=== PATIENT | female | born 1965 | race Caucasian/White ===

== ENCOUNTER 2018-02-01 07:20 | Day surgery (SDC) | END 2018-02-01 17:58 | disposition home or self-care (01) ==

== ENCOUNTER 2018-04-29 12:03 | Observation (INO) | END 2018-05-01 18:35 | disposition home or self-care (01) ==

== ENCOUNTER → 2018-06-27 | Outpatient (CLI) | END | disposition home or self-care (01) ==

== ENCOUNTER 2018-09-02 11:37 | Inpatient (IN) | END 2018-09-04 16:29 | disposition home or self-care (01) | DRG 581 ==

== ENCOUNTER 2019-01-13 11:10 | Day surgery (SDC) | payer OTHER ==
[2019-01-13] VITALS (17 sets, daily range): BP systolic 132–163; BP diastolic 80–106; PULSE 74–100; RESP 11–20; Ht 170.2 cm; Wt 87.5 kg
[~2019-01-13] VITALS: Ht 170.2 cm; Wt 87.5 kg
[~2019-01-13 11:10] MED LIST: BENA10TA4 PO; HYDR25TA6 PO; NIRA100C PO; OXYC-438 PO
[2019-01-13] MEDS ORDERED: ACET1TAB40 ORAL (11:49)
[2019-01-13] MEDS ORDERED: BUPIVACAINE 0.5% (SDV) 30 ML INJ ONE (12:10)
--- NOTE | 2019-01-13 12:29 | PREAC ---
Date/Time of Note Date/Time of Note DATE: 01/13/19 TIME: 12:26 Anesthesia Eval and Record Evaluation Time Pre-Procedure Interview DATE: 01/13/19 TIME: 12:26 Age 53 Sex female NPO: 8 hrs Preoperative diagnosis Rt chest wall multiple masses Planned procedure Excision of multiple rt chest wall masses Past Medical History Past Medical History: Includes Cardio: HTN GI: Morbid obesity Surgery & Anesthesia Issues Hx of PONV, No known issue Meds Anticoagulation: No Beta Danelle within 24 hr: No Reason Beta Danelle not given: Pt. not on B-Danelle Reported Medications Acetaminophen with Codeine (Acetaminophen-Cod #3 Tablet) 1 Each Tablet, 1 TAB ORAL Q8H PRN for PAIN LEVEL 6-10 01/13/19 Niraparib Tosylate ([place]) 100 Mg Capsule, 100 MG PO HS, CAP 01/12/19 Hydrochlorothiazide* (Hydrochlorothiazide*) 25 Mg Tab, 25 MG PO DAILY, #30 TAB 09/02/18 Benazepril Hcl* (Benazepril Hcl*) 10 Mg Tablet, 10 MG PO DAILY, #30 TAB 04/29/18 Discontinued Scripts Oxycodone HCl/Acetaminophen (Oxycodone-Acetaminophen 5-325) 1 Each Tablet, 1 TAB PO Q4H PRN for PAIN LEVEL 1-5 for 10 Days, #30 TAB Prov:ENZO LAWRENCE 09/04/18 Current Medications Influenza Virus Vaccine Quadrival (Fluzone) 0.5 ml ONCE ONCE IM* ; Start 01/16/19 at 10:00; Stop 01/16/19 at 10:01 Meds reviewed: Yes Allergies Coded Allergies: ondansetron (Verified Allergy, Unknown, RASH, 01/13/19) hydromorphone (Verified Adverse Reaction, Severe, N/V, 01/13/19) Allergies Reviewed: Yes Labs/Studies Labs Reviewed: Reviewed by anesthesiologist test: Negative Pre-procedure Exam Last vitals Vital Signs Date Temp Pulse Resp B/P (MAP) Pulse Ox O2 O2 Flow FiO2 Time Delivery Rate 01/13/19 98.5 80 16 156/87 98 Room Air 11:49 (110) Airway: Adequate mouth opening, Adequate thyromental dist Mallampati: Mallampati III Teeth: Normal Lung: Normal Heart: Normal ASA Physical Status ASA physical status: 3 Emergency: None Planned Anesthetic General/MAC: LMA Planned Pain Management Parenteral pain med, Local by surgeon Pre-operative Attestations Prior to commencing anesthesia and surgery, the patient was re-evaluated, there was verification of: *The patient's identity *The results of appropriate recent lab work and preoperative vital signs *The above evaluation not changing prior to induction *Anesthetic plan, risk benefits, alternative and complications discussed with patient/family; questions answered; patient/family understands, accepts and wishes to proceed. DUANE COCHRAN MD Jan 13, 2019 12:29
[2019-01-13] MEDS ORDERED: MIDAZOLAM 1 MG/ML 2 ML INJ ONE (13:41)
[2019-01-13] MEDS ORDERED: FENTAnyl 50 MCG/ML VIAL ONE (13:41)
[2019-01-13] MEDS ORDERED: LIDOCAINE 2% (SDV) 5 ML INJ ONE (15:00)
[2019-01-13] MEDS ORDERED: PROPOFOL 20 ML ONE (15:00)
[2019-01-13] MEDS ORDERED: CEFAZOLIN 1 GM INJ ONE (15:01)
[2019-01-13] MEDS ORDERED: METOCLOPRAMIDE 10 MG INJ ONE (15:01)
[2019-01-13] MEDS ORDERED: ONDANSETRON 4 MG INJ ONE (15:01)
--- NOTE | 2019-01-13 15:04 | SIPON ---
Date/Time of Note Date/Time of Note DATE: 01/13/19 TIME: 15:03 Operative Report Preoperative Diagnosis Recurrent cancer right chest wall Postoperative Diagnosis Same Operation/Procedure Performed Resection of the large area of her recurrent breast cancer right chest wall with large portion of skin and portion of underlying chest wall musculature Surgeon see signature line assistant quality manager Dr Patel Second assist: SELENA BANG MD Anesthesia: general Estimated blood loss: 100 - 150 ml's Transfusion Required none Specimen Right chest wall tumor with overlying skin and portion of chest wall musculature Grafts/Implants none Complications none JENNY HOPKINS MD Jan 13, 2019 15:04
[2019-01-13] MEDS ORDERED: ACETAMINOPHEN 1000MG/100ML IV 100 ML IVPB PRN (15:30)
--- NOTE | 2019-01-13 15:35 | PAC ---
Date/Time of Note Date/Time of Note DATE: 01/13/19 TIME: 15:34 Post-Anesthesia Notes Post-Anesthesia Note Last documented vital signs Vital Signs Date Temp Pulse Resp B/P (MAP) Pulse Ox O2 O2 Flow FiO2 Time Delivery Rate 01/13/19 98.5 80 16 156/87 98 Room Air 11:49 (110) Activity: WNL Respiratory function: WNL Cardiovascular function: WNL Mental status: Baseline Pain reasonably controlled: Yes Hydration appropriate: Yes Nausea/Vomiting absent: Yes Comments BP:142/88, P:86, Spo2:100%, T:98,8 DUANE COCHRAN MD Jan 13, 2019 15:35
[2019-01-13] MEDS ORDERED: DIPHENHYDRAMINE 50 MG INJ IV PRN (16:00)
[2019-01-13] MEDS ORDERED: hydrALAzine 20 MG INJ IV PRN (16:00)
[2019-01-13] MEDS ORDERED: LABETALOL HCL 20MG INJ IV PRN (16:00)
[2019-01-13] MEDS ORDERED: METOCLOPRAMIDE 10 MG INJ IV PRN ×2 (16:00→16:30)
[2019-01-13] MEDS ORDERED: FENTAnyl 50 MCG/ML VIAL IV PRN (16:00)
[2019-01-13] MEDS ORDERED: KETOROLAC 30 MG INJ IV PRN (16:30)
[2019-01-13] MEDS: D5W-0.45 NACL + KCL 20 MEQ 1,000 ML IV SCH ×2 (17:24→23:04)
--- NOTE | 2019-01-13 17:33 | OPR ---
DATE OF OPERATION: 01/13/2019 PREOPERATIVE DIAGNOSIS: Recurrent breast cancer, right anterior thoracic and chest wall. POSTOPERATIVE DIAGNOSIS: Recurrent breast cancer, right anterior thoracic and chest wall. OPERATION PERFORMED: Resection of the large area of recurrent breast cancer, right chest wall invadi ng portions of the underlying muscle. Large local skin flap advancement closure. ANESTHESIA: General. ANESTHESIOLOGIST: Satish Pacheco MD. SURGEON: Rafa Cristina MD. ASSISTANTS: Dr. Patel and Dr. Watts. INDICATIONS FOR PROCEDURE: The patient is a very unfortunate 53-year-old female who I previously nazia ated for invasive cancer of the right breast. She had known metastatic disease that developed to rec urrent fungating tumor on the right chest wall, which had a foul smelling odor and significant draina ge. Based on this, she was counseled as to the benefit of palliative resection. She consented and w as scheduled for surgery. DESCRIPTION OF PROCEDURE: The patient was brought to the operating theater, placed under general end otracheal tube anesthesia. She was then put in the lateral position with the right side up. A large elliptical incision was demarcated over the significant area of tumor from the sternal border all th e way to the posterior thorax. The incision was then carried out with 15 blade scalpel and the under lying subcutaneous tissue was transected with cautery dissection down to the muscle then took place o n both the superior and inferior side and the skin and a portion of the underlying muscle were then r esected from medial to lateral using cautery. This large area of tumor, skin and muscle was then sen t for permanent pathologic analysis. Due to the large defect, it was necessary to create skin flaps. Wide skin flaps for a distance of at least 10 cm were created both superiorly and inferiorly. The wound was then irrigated. Residual bleeding was controlled with cautery. Two #10 flat Amish-Srivastava drains were then brought through the right mid axillary line. One was placed posteriorly and the se cond was placed anteriorly over the anterior thoracic wall. Both drains were secured in place with 2 -0 nylon sutures. The skin flaps were rotated together and held in place with towel clamps and skin was then reapproximated with multiple 0 Prolene sutures in vertical mattress fashion and additional s kin ava were then placed. The patient tolerated the procedure well. The estimated blood loss wa s approximately 150 mL. There were no complications and the patient was transported in stable condit ion to the recovery room where circumferential compression dressing was applied. Dictated By: RAFA RODRIGEZ/JUAN MIGUEL Conf#: [id number] DID#: [id number]
[2019-01-13] MEDS: HYDROCODONE/APAP (5/325) TAB PO PRN (19:23)
--- NOTE | 2019-01-14 00:28 | HP ---
DATE OF ADMISSION: 01/13/2019 CHIEF COMPLAINT AND HISTORY OF PRESENT ILLNESS: The patient is a 53-year-old female well known to me from previous admission. The patient at that time was admitted for right breast cancer and underwent right partial mastectomy and axillary dissection. The patient also underwent chemotherapy and was subsequently treated for local recurrence. The patient was seen by Dr. Cristina as an outpatient and was diagnosed with: Recurrent breast cancer with right anterior thoracic and chest wall involvement. She underwent surgery today . ROS : post op CP. no nausea , vomiting,headache , dizziness, abdominal pain. No sensory -motor symptoms. Rest of the ROS unremarkable PAST MEDICAL HISTORY: As stated above. PAST SURGICAL HISTORY: The patient is status post right arm surgery for traumatic soft tissue injury status post appendectomy, status post abdominal lipoma resection, status post , status post tubal ligation, status post left chest Port-A-Cath placement. FAMILY HISTORY: Noncontributory. SOCIAL HISTORY: No smoking, no alcohol. PHYSICAL EXAMINATION: GENERAL: Revealed the patient to be awake, alert, fairly oriented. VITAL SIGNS: Temperature 98.4, pulse 74, respirations 18, blood pressure 150/88, O2 saturation is 100% room air. HEENT: No eye discharge or redness. Conjunctivae and lids are normal. Nose and ears are normal. NECK: The patient is status post surgery. CHEST: Fairly clear. CARDIOVASCULAR: S1, S2, normal. No murmur. ABDOMEN: Soft, nondistended, nontender. Bowel sounds present. EXTREMITIES: No edema. NEUROLOGIC: The patient remains clinically stable. A/P: Breast cancer : s/p surgery If the patient continues to do well, she will be discharged home tomorrow. We will use SCD for DVT prophylaxis. For pain control, the patient will be started on Toradol and [place]. Will add zofran on prn basis Dictated By: DERRICK IRENE MD AB/NTS Conf#: [id number] DID#: [id number] CC: JENNY CRISTINA MD;*EndCC* MTDD
[2019-01-14] MEDS: HYDROCODONE/APAP (5/325) TAB PO PRN ×3 (02:31→20:18)
[2019-01-14] MEDS: D5W-0.45 NACL + KCL 20 MEQ 1,000 ML IV SCH ×3 (05:50→22:39)
--- NOTE | 2019-01-14 16:28 | PN ---
Date/Time of Note Date/Time of Note DATE: 01/14/19 TIME: 16:25 Assessment/Plan VTE Prophylaxis Risk score (from Nsg)>0 risk: 2 SCD applied (from Nsg): Yes Lines/Catheters IV Catheter Type (from Nrsg): Peripheral IV Assessment/Plan Assessment/Plan 1. Recurrent breast cancer with right anterior thoracic and chest wall involvement. - PER SX 2. Diabetes. - GLYCEMIC control 3. Hypertension. Result Diagram: 01/14/19 0603 01/14/19 0602 Results 24hrs Laboratory Tests Test 01/14/19 06:02 01/14/19 06:03 Sodium Level 138 Potassium Level 3.5 Chloride Level 103 Carbon Dioxide Level 28 Anion Gap 7 Blood Urea Nitrogen 10 Creatinine 0.66 Est Glomerular Filtrat Rate mL/min > 60 Glucose Level 136 Calcium Level 8.3 L White Blood Count 4.2 #L Red Blood Count 2.95 L Hemoglobin 7.5 #L Hematocrit 23.6 L Mean Corpuscular Volume 80.0 L Mean Corpuscular Hemoglobin 25.4 L Mean Corpuscular Hemoglobin Concent 31.8 L Red Cell Distribution Width 19.8 H Platelet Count 33 #L Mean Platelet Volume 9.0 # Immature Granulocytes % 0.200 Neutrophils % Segmented Neutrophils % (Manual) 56 Band Neutrophils % (Manual) 13 H Lymphocytes % Lymphocytes % (Manual) 23 Monocytes % Monocytes % (Manual) 4 Eosinophils % Basophils % Myelocytes % (Manual) 3 H Promyelocytes % (Manual) 1 H Nucleated Red Blood Cells % 0.0 Immature Granulocytes # 0.010 Neutrophils # Neutrophils # (Manual) 2.4 Band Neutrophils # 0.5 Lymphocytes (Manual) 0.9 Lymphocytes # Monocytes # Monocytes # (Manual) 0.1 L Eosinophils # Basophils # Myelocytes # 0.1 H Promyelocytes # 0.0 Nucleated Red Blood Cells # Pathologist Review (Hematology) Platelet Estimate SIG DECREASED Poikilocytosis 1+ Anisocytosis 3+ Microcytosis 3+ Macrocytosis 1+ Exam/Review of Systems Exam Vitals Vital Signs Date Temp Pulse Resp B/P (MAP) Pulse Ox O2 O2 Flow FiO2 Time Delivery Rate 01/13/19 98.4 100 20 132/80 98 20:00 (97) 01/13/19 Room Air 17:45 01/13/19 2.0 16:29 Intake and Output 3/101/13/19 01/14/19 1515:00 23:00 07:00 IntakeIntake Total 1080 ml 820 ml OutputOutput Total 0 ml 190 ml 40 ml BalanceBalance 0 ml 890 ml 780 ml Results Results 24hrs Laboratory Tests Test 01/14/19 06:02 01/14/19 06:03 Sodium Level 138 Potassium Level 3.5 Chloride Level 103 Carbon Dioxide Level 28 Anion Gap 7 Blood Urea Nitrogen 10 Creatinine 0.66 Est Glomerular Filtrat Rate mL/min > 60 Glucose Level 136 Calcium Level 8.3 L White Blood Count 4.2 #L Red Blood Count 2.95 L Hemoglobin 7.5 #L Hematocrit 23.6 L Mean Corpuscular Volume 80.0 L Mean Corpuscular Hemoglobin 25.4 L Mean Corpuscular Hemoglobin Concent 31.8 L Red Cell Distribution Width 19.8 H Platelet Count 33 #L Mean Platelet Volume 9.0 # Immature Granulocytes % 0.200 Neutrophils % Segmented Neutrophils % (Manual) 56 Band Neutrophils % (Manual) 13 H Lymphocytes % Lymphocytes % (Manual) 23 Monocytes % Monocytes % (Manual) 4 Eosinophils % Basophils % Myelocytes % (Manual) 3 H Promyelocytes % (Manual) 1 H Nucleated Red Blood Cells % 0.0 Immature Granulocytes # 0.010 Neutrophils # Neutrophils # (Manual) 2.4 Band Neutrophils # 0.5 Lymphocytes (Manual) 0.9 Lymphocytes # Monocytes # Monocytes # (Manual) 0.1 L Eosinophils # Basophils # Myelocytes # 0.1 H Promyelocytes # 0.0 Nucleated Red Blood Cells # Pathologist Review (Hematology) Platelet Estimate SIG DECREASED Poikilocytosis 1+ Anisocytosis 3+ Microcytosis 3+ Macrocytosis 1+ Medications Medication Current Medications Influenza Virus Vaccine Quadrival (Fluzone) 0.5 ml ONCE ONCE IM* ; Start 01/16/19 at 10:00; Stop 01/16/19 at 10:01 Potassium Chloride/Dextrose/ Sod Cl 1,000 ml @ 125 mls/hr Q8H IV Last administered on 01/14/19at 14:28; Admin Dose 125 MLS/HR; Start 01/13/19 at 15:04 Metoclopramide HCl (Reglan) 10 mg Q6H PRN IV NAUSEA; Start 01/13/19 at 16:30 Ketorolac Tromethamine (Toradol) 30 mg Q6H PRN IV PAIN LEVEL 1-3 Last administered on 01/14/19at 09:51; Admin Dose 30 MG; Start 01/13/19 at 16:30; Stop 01/16/19 at 16:29 Acetaminophen/ Hydrocodone Bitart ([place] (5/325)) 1 tab Q4H PRN PO MODERATE PAIN LEVEL 4-6 Last administered on 01/14/19at 14:36; Admin Dose 1 TAB; Start 01/13/19 at 16:30 JOSE PARSONS Jan 14, 2019 16:28
[2019-01-14] MEDS: BENAZEPRIL 10 MG TAB PO SCH (17:00)
[2019-01-14] MEDS: HYDROCHLOROTHIAZIDE 25 MG TAB PO SCH (17:00)
--- NOTE | 2019-01-14 18:43 | PN ---
DATE: 01/14/2019 Postop day #1 status post extensive resection of the chest wall metastasis of previously removed [address] cancer. SUBJECTIVE: Complains of pain and she is getting different medication for control of the pain. Also there has been some drainage of the blood from the site of the Amish-Srivastava tube. She has been out of bed, walking in the room, but she has been feeling a little bit dizzy. OBJECTIVE: VITAL SIGNS: Temperature 98.4, heart rate 74 and 100, respirations 20, blood pressure 132/80, satura tion 98%. LABORATORY DATA: Sodium, potassium, BUN and creatinine are within normal limits. Hematology: Hemog lobin is 7.5, hematocrit 23.6, platelet count is 33. I am not sure before this operation of what were the values of the hemoglobin and hematocrit, but the re are two Amish-Srivastava drains and that the drainage has been bloody since the operation yesterday, and since the operation and until 7:00 today morning they have drained 100 mL all together. The righ t upper extremity has lymphedema. The patient can move all the fingers and hand and raise the right upper extremity to about 90 degrees of abduction. PLAN: Considering the low value of the hemoglobin, hematocrit and platelet, also bloody drainage fro m the Amish-Nick, and some dizziness while walking, I prefer to keep the patient at least one mor e day today in the hospital. We will observe her. We will repeat CBC tomorrow and if this is stable , we are going to discharge her tomorrow. Dictated By: SHERI PARHAM/JUAN MIGUEL Conf#: [id number] DID#: [id number]
[2019-01-14 20:30] VITALS: BP 135/80; PULSE 90; RESP 20
[2019-01-15 01:00] VITALS: BP 115/68; PULSE 81; RESP 19
[2019-01-15] MEDS: HYDROCODONE/APAP (5/325) TAB PO PRN ×3 (03:52→14:14)
[2019-01-15 06:00] VITALS: BP 136/94; PULSE 86; RESP 18
[2019-01-15] MEDS: HYDROCHLOROTHIAZIDE 25 MG TAB PO SCH (06:08)
[2019-01-15] MEDS: D5W-0.45 NACL + KCL 20 MEQ 1,000 ML IV SCH ×2 (06:59→15:04)
[2019-01-15 08:34] VITALS: BP 159/84; PULSE 70; RESP 17
[2019-01-15] MEDS: BENAZEPRIL 10 MG TAB PO SCH (08:56)
[2019-01-15 12:00] VITALS: BP 142/83; PULSE 77; RESP 18
--- NOTE | 2019-01-15 13:41 | PN ---
DATE: 01/15/2019 Status post extensive resection of the right chest wall skin which has metastatic cancer of the breas t and deposits in it. SUBJECTIVE: Feels better slightly today, tolerating food and has been out of bed, walking around. C omplains also of right posterior upper chest wall pain which appears to be pain in the ribs or scapul a on the right side. She said that this pain has been going on for about 2 months. There is possibility of bone metastasis, so I will talk to Dr. Hopkins and maybe the patient needs to h ave a PET CT scan done as an outpatient when she goes to Dr. Hopkins' office for followup this coming w [place]. HEART: Regular. LUNGS: Clear. ABDOMEN: Soft. Two Amish-Srivastava drain in place. The drainage is serosanguineous today. We will k eep the drains in place. LABORATORY DATA: WBC is 3700 with 48% segmented, hemoglobin is 7.8, hematocrit 24.3, platelet is the same as yesterday. It is actually slightly better, it is 40,040 today. ASSESSMENT: The patient is status post resection of metastatic cancer of breast to the right chest w all. Extensive resection was performed on Wednesday. The patient is stable now. From surgical point o f view, the patient can be discharged home to follow with Dr. Hopkins in the office. Instructions give n to the patient in regard to the care of the Amish-Srivastava and how to drain it and how to record the drainage and when she goes to Dr. Hopkins' office to take the paper so that they know how much has bee n draining. The patient says she has Tylenol with codeine at home for pain. In any case, the medica l service will also see the patient and they will make a discharge planning if they agree with discha rge and they will give pain medication to the patient as well. Dictated By: SHERI FAIRBANKS MD PS/NTS Conf#: [id number] DID#: [id number] CC: JENNY HOPKINS MD;*EndCC*
--- NOTE | 2019-01-15 13:58 | PDOCDIS ---
Discharge Instructions CONDITION [id number] Patient Condition: Rylze2g Good HOME CARE INSTRUCTIONS: [id number] Diet Instructions: [id number] Regular ACTIVITY: [id number] Activity Restrictions: [id number] Slowly Increase Activity Avoid heavy lifting FOLLOW UP/APPOINTMENTS Follow-up Plan Dr. Cristina next week Oncologist as before PMD in 1-2 week DERRICK IRENE MD Jan 15, 2019 13:58
[2019-01-15] MEDS ORDERED: FER325 PO (14:00)
[2019-01-15 15:22] VITALS: BP 137/79; PULSE 91; RESP 18
== END 2019-01-15 16:50 | disposition home or self-care (01) ==
LOC: SDS 11:10 → REC 15:27 → UNDOADMIN 15:27 → 2NE 17:10 → REC 17:10 → SDS 01-15 16:50
PROVIDERS: ATTEND Surgery Surgical Oncology
DX: C50.911 Malignant neoplasm of unspecified site of right female breast (principal); I10 Essential (primary) hypertension
CPT/HCPCS: 19260; 80048; 84703; 85025; 88307; J0690; J1200; J1885; J2250; J2405; J2765; J3010; J3480; Z7512; Z7610

== ENCOUNTER 2019-01-26 16:49 | Inpatient (IN) | payer OTHER ==
[~2019-01-26] VITALS: Ht 152.4 cm; Wt 75.8 kg
[~2019-01-26 16:49] MED LIST changes: +ACET1TAB40 ORAL; +FER325 PO; -OXYC-438 PO
[2019-01-26 21:00] VITALS: Ht 152.4 cm; Wt 75.8 kg
[2019-01-27 00:20] VITALS: BP 138/75; PULSE 99; RESP 18
[2019-01-27] MEDS ORDERED: NACL 0.9% 3 ML SYG IV SCH (01:00)
[2019-01-27] MEDS ORDERED: ACETAMINOPHEN 325 MG TAB PO PRN (01:00)
[2019-01-27] MEDS ORDERED: ALBUTEROL/IPRATROPIUM (NEB) 3 ML AMP HHN PRN (01:00)
[2019-01-27] MEDS ORDERED: VANCOMYCIN IV PER PHARMACY XX SCH (01:00)
[2019-01-27] MEDS: CEFEPIME 1GM/50 ML (PMX) 50 ML IVPB SCH ×4 (01:41→22:36)
[2019-01-27] MEDS ORDERED: VANCOMYCIN HCL 1.5 GM in SOD CHLORIDE 0.9% 250 ML IVPB ONE (03:00)
[2019-01-27 03:08] VITALS: BP 98/114; PULSE 99; RESP 20
[2019-01-27] MEDS: morphine 2 MG INJ IV PRN ×2 (04:59→09:07)
[2019-01-27] MEDS ORDERED: POLYETHYLENE GLYCOL 17 GM PACKET PO ONE (05:00)
[2019-01-27 08:21] VITALS: BP 117/70; PULSE 97; RESP 17
[2019-01-27] MEDS: BENAZEPRIL 10 MG TAB PO SCH (08:59)
[2019-01-27] MEDS: FERROUS SULFATE (EC) 325 MG TAB PO SCH ×2 (08:59→21:06)
[2019-01-27 14:00] VITALS: BP 112/65; PULSE 102; RESP 17
[2019-01-27] MEDS ORDERED: VANCOMYCIN 1 GM 250 ML IVPB SCH (15:00)
--- NOTE | 2019-01-27 16:03 | HP ---
Date/Time of Note Date/Time of Note DATE: 01/27/19 TIME: 15:42 Assessment/Plan VTE Prophylaxis [place] [facility] [place]: 5 SCD applied (from Ns): Yes Pharmacological prophylaxis: NA/contraindicated Pharm contraindication: surgical contra Lines/Catheters IV C[facility]ter Type (from [facility] Peripheral IV Urinary Cath still in place: No Assessment/Plan Assessment/Plan -Right chest cellulitis, obtain wound culture, continue broad-spectrum antibiotics. Dr. Lafleur is asked to see patient in infection disease consultation. -Right chest stage IV cancer, post right radical mastectomy and chemotherapy. Dr. Cristina is asked to see patient in surgical consultation. -Anemia most likely secondary to chemotherapy and malignancy. Transfuse as needed. -Mild hypokalemia, will obtain BMP. Further recommendations based on clinical course. Plan of care discussed with Dr. Werner. Result Diagram: 01/27/19 1309 Results 24hrs Laboratory Tests Test 01/27/19 13:09 Blood Urea Nitrogen 12 Creatinine 0.63 HPI/ROS Admit Date/Time Admit Date/Time Jan 26, 2019 at 20:47 Hx of Present Illness The patient is unfortunate 53-year-old female with stage IV right breast cancer with lung metastasis, status post right radical mastectomy in August 2018 and chemotherapy. Patient developed recurrent fungating tumor of the right chest wall and underwent palliative resection of the large area of the recurrent breast cancer [address] Cristina. Patient follows with oncologist Dr. Vargas and as needed undergoing chemotherapy and immunotherapy however stated that last time she was unable to undergo chemotherapy due to low hemoglobin. Patient went to [facility] due to significant pain and drainage from surgical incision site. Patient was diagnosed with infection of surgical site patient was noted to have elevated white blood cells with left shift, hemoglobin 7.4 and mild hypokalemia. Patient was transferred to [facility] due to insurance reason and admitted to medical surgical floor. Patient denies any fever chills, denies any nausea and vomiting denies chest pain denies shortness of breath. Patient is complaining of significant incisional pain and generalized weakness. ROS Both point review of system is negative except for what mentioned in HPI PMH/Family/Social Past Medical History Medical History: hypertension Medications Current Medications IV Flush (NS 3 ml) 3 ml PER PROTOCOL IV ; Start 01/27/19 at 01:00 Acetaminophen (Tylenol Tab) 650 mg Q6H PRN PO .PAIN 1-3 OR TEMP; Start 01/27/19 at 01:00 Albuterol/ Ipratropium (Duoneb) 3 ml Q2H RESP THERAPY PRN HHN SHORTNESS OF B REATH; Start 01/27/19 at 01:00 Benazepril HCl (Lotensin) 10 mg DAILY PO Last administered on 01/27/19at 08:59; Admin Dose 10 MG; Start 01/27/19 at 09:00 Ferrous Sulfate (Ferrous Sulfate (Ec)) 325 mg BID PO Last administered on 01/27/19at 08:59; Admin Dose 325 MG; Start 01/27/19 at 09:00 Miscellaneous Information 100 mg HS PO ; Start 01/27/19 at 21:00; Status UNV Vancomycin HCl (Vanco Iv Per Pharmacy) VANCOMYCIN PER PHARMACY PER PROTOCOL XX ; Start 01/27/19 at 01:00 Cefepime HCl 50 ml @ 100 mls/hr Q12 IVPB Last administered on 01/27/19at 08:59; Admin Dose 100 MLS/HR; Start 01/27/19 at 01:00 Morphine Sulfate (morphine) 2 mg Q4H PRN IV SEVERE PAIN LEVEL 7-10 Last administered on 01/27/19at 09:07; Admin Dose 2 MG; Start 01/27/19 at 05:00 Vancomycin HCl 250 ml @ 125 mls/hr Q12H IVPB ; Start 01/27/19 at 16:00 Miscellaneous Information (*Rx Drug Level Order Reminder*) VANCO TR AT 1500 ONCE ONCE XX ; Start 01/28/19 at 15:00; Stop 01/28/19 at 15:01 Coded Allergies: ondansetron (Verified Allergy, Unknown, RASH, 01/13/19) hydromorphone (Verified Adverse Reaction, Severe, N/V, 01/13/19) Past Surgical History Past Surgical Hx: other ( S/p partial mastectomy of the right breast in January 2018, s/p right total mastectomy in August 2018, status post recurrent tumor resection January 13, 2018) Family History Significant Family History: cancer (Breast cancer in patient's grandmother and aunt) Social History Alcohol Use: none Smoking Status: Never smoker Drug Use: none Exam/Review of Systems Vital Signs Vitals Vital Signs Date Temp Pulse Resp B/P (MAP) Pulse Ox O2 O2 Flow FiO2 Time Delivery Rate 01/27/19 98.6 97 17 117/70 99 Room Air 08:21 (86) Intake and Output 01/26/19 01/26/19 01/27/19 1515:00 23:00 07:00 IntakeIntake Total 200 ml OutputOutput Total 250 ml BalanceBalance -50 ml Exam Constitutional: alert, oriented Head: normocephalic Neck: supple Respiratory: clear to auscultation Cardiovascular: nl pulses Gastrointestinal: soft, non-tender Musculoskeletal: nl extremities to inspection Extremities: normal pulses Neurological: nl mental status Skin: other (Right chest surgical incision with erythema and tenderness, right chest lateral wounds from prior NORMA with small amount of drainage.) ENIO ONEILL Jan 27, 2019 15:56
[2019-01-27] MEDS: VANCOMYCIN 1 GM 250 ML IVPB SCH (16:16)
[2019-01-27] MEDS: HYDROCODONE/APAP (5/325) TAB PO PRN ×2 (16:20→21:07)
[2019-01-27 20:41] VITALS: BP 125/66; PULSE 96; RESP 18
[2019-01-27] MEDS ORDERED: NIRAPARIB TOSYLATE 100 MG PO SCH (21:00)
[2019-01-27] MEDS: DOCUSATE SODIUM 100 MG CAP PO SCH (21:06)
[2019-01-27] MEDS ORDERED: COLLAGENASE 5 GM (UD JAR) TOP ONE (22:05)
[2019-01-28] VITALS (7 sets, daily range): BP systolic 100–141; BP diastolic 61–90; PULSE 55–101; RESP 18–19
[2019-01-28] MEDS: VANCOMYCIN 1 GM 250 ML IVPB SCH ×2 (04:45→17:37)
[2019-01-28] MEDS: HYDROCODONE/APAP (5/325) TAB PO PRN ×4 (05:15→21:09)
[2019-01-28] MEDS: METOCLOPRAMIDE 10 MG INJ IV PRN (05:16)
[2019-01-28] MEDS: HYDROCHLOROTHIAZIDE 25 MG TAB PO SCH (09:52)
[2019-01-28] MEDS: CEFEPIME 1GM/50 ML (PMX) 50 ML IVPB SCH (09:52)
[2019-01-28] MEDS: DOCUSATE SODIUM 100 MG CAP PO SCH ×2 (09:52→20:10)
[2019-01-28] MEDS: BENAZEPRIL 10 MG TAB PO SCH (09:52)
[2019-01-28] MEDS: FERROUS SULFATE (EC) 325 MG TAB PO SCH ×2 (09:55→20:10)
--- NOTE | 2019-01-28 13:25 | CONS ---
DATE OF ADMISSION: 06/27/2018 DATE OF CONSULTATION: 01/28/2019 DATE OF CONSULTATION: 01/28/2019. TYPE OF CONSULTATION: Surgical. REQUESTING PHYSICIAN: Medical service. REASON FOR CONSULTATION: Evaluation of the patient for the infection and cellulitis of the anterolat eral chest wall site of previous operation in which patient had for recurrent cancer of the right titus ast and was operated on 2 weeks ago. Consultation originally was requested from Dr. Cristina' service a nd I am seeing for Dr. Cristina. Thank you for consultation. HISTORY OF PRESENT ILLNESS: This is a 53-year-old female who in August 2018 had right modified radi penny mastectomy with axillary dissection for the invasive cancer of the right breast and also, she con tinued to have chemotherapy and immunotherapy as an outpatient. She presents to Dr. Cristina' office ab out 3 to 4 weeks ago with evidence of recurrent cancer of the right breast involving the large areas of right anterolateral chest wall. The patient was scheduled for operation and on 01/13/2019 underwe nt extensive resection of the large areas of skin and subcutaneous tissue involving even some part of the thoracic chest wall muscle for the recurrent cancer of the right breast, involving the skin. Po stop, the patient was doing relatively okay. On Wednesday01/27/2019, the 2 [employer] drains were removed in Dr. Cristina' office. At that time, there was minimal drainage. After that, the patient in past few days has been gradually feeling tired and some low grade fever and decreased appetite. So e ventually she goes to see Dr. Vargas who did the chemotherapies, and he found that the patient has ev idence of infection of the chest wall and has low hemoglobin and also small degree of fever, so she i s referred to emergency room. She goes to another emergency room and from there for the insurance re asons, the patient was referred back to [facility] emergency room. Over here, patient was s een in the emergency room and was found to have temperature 98.9, heart rate 99, respirations 18, blo od pressure 138/75, saturation 96% on room air. In the emergency room yesterday, the lab values are as follows: WBC 8500 with 79% segmented, which is a slight shift to the left, and hemoglobin was fou nd to be 6.4, which is very low, platelet count 278. Chemistry within normal limits. On physical ex am was found to have an area of cellulitis, mostly on the lateral part of the right upper chest wall at the site of incision. So with the impression of cellulitis, the patient was admitted, started on antibiotics, vancomycin and Maxipime IV. Now consultation was requested for us to see the patient an d surgical team. PAST MEDICAL HISTORY: Mainly is related to the cancer of the breasts which she has been struggling a nd fighting since last January when it was first diagnosed. Past medical history also is positive for hypertension. ALLERGIES: 1. DILAUDID. 2. ZOFRAN. PHYSICAL EXAMINATION GENERAL: Today, the patient is awake, alert, oriented x3, lying down in the bed, not in acute distre ss. VITAL SIGNS: Today temperature 98.1, heart rate 101, respirations 19, blood pressure 128/85, saturat ion 100% room air. Labs as was mentioned, hemoglobin is 6.4. Chemistry is normal. Head and neck wi thin normal limits. CHEST: Symmetrical expansion. The incision line appears to be healing properly, except that in the lateral aspect of the incision line mainly on the anterolateral and posterior extension of the incisi on line, there is evidence of cellulitis. I do not feel the accumulation of the fluid under that. HEART: Regular, tachycardia. LUNGS: Clear. ABDOMEN: Soft. EXTREMITIES: Legs no calf tenderness. No pitting edema. IMPRESSION: Here is a 53-year-old female status post recent operation for metastatic cancer of the r ight breast to the chest wall with extensive resection and skin flap mobilization. Post-operation, t he patient has developed more anemia and also cellulitis. For this reason, the patient has been admi tted, started on antibiotics. Also, per internal medicine ordered the patient is going to receive 3 units of packed cells considering that hemoglobin is 6.4. Patient has been started also on ferrous s ulfate and other medications. PLAN: From surgical point of view, we agree and recommend continue antibiotic treatment, manage anem ia as appropriate from medical cardiac point of view. The patient has stay sutures and ava in pl [place]. We are going to remove them on appropriate time gradually. We will continue to see the patient along with other colleagues. Dictated By: SHERI FAIRBANKS MD PS/NTS Conf#: [id number] [facility]#: [id number]
--- NOTE | 2019-01-28 14:40 | PN ---
Date/Time of Note Date/Time of Note DATE: 01/28/19 TIME: 14:37 Assessment/Plan VTE Prophylaxis [place] [facility] [place] risk: 8 [place]CD [place] [facility] No SCD contraindicated: other Pharmacological prophylaxis: other Pharm contraindication: other Lines/Catheters IV Catheter Type (from [facility] giovanna cath Urinary Cath still in place: No Assessment/Plan Assessment/Plan -Right chest cellulitis, obtain wound culture, continue broad-spectrum anti biotics. - per Dr. Lafleur in infection disease consultation. -Right chest stage IV cancer, post right radical mastectomy and chemotherapy. - Dr. Cristina in surgical consultation. -Anemia most likely secondary to chemotherapy and malignancy. - 3 PRBC; got 1 unit PRBC - am CBC -Mild hypokalemia- RESOLVED Further recommendations based on clinical course. Plan of care discussed with Dr. Werner. Result Diagram: 01/28/19 0446 01/28/19 0446 Results 24hrs Laboratory Tests Test 01/28/19 04:46 White Blood Count 8.5 # Red Blood Count 2.32 #L Hemoglobin 6.4 *L Hematocrit 20.5 L Mean Corpuscular Volume 88.4 Mean Corpuscular Hemoglobin 27.6 L Mean Corpuscular Hemoglobin Concent 31.2 L Red Cell Distribution Width 24.5 H Platelet Count 278 # Mean Platelet Volume 9.5 Immature Granulocytes % 0.500 H Neutrophils % Segmented Neutrophils % (Manual) 79 H Band Neutrophils % (Manual) 6 H Lymphocytes % Lymphocytes % (Manual) 9 L Monocytes % Monocytes % (Manual) 6 Eosinophils % Basophils % Nucleated Red Blood Cells % 0.0 Immature Granulocytes # 0.040 H Neutrophils # Neutrophils # (Manual) 6.8 Band Neutrophils # 0.5 Lymphocytes (Manual) 0.7 L Lymphocytes # Monocytes # Monocytes # (Manual) 0.5 Eosinophils # Basophils # Nucleated Red Blood Cells # Platelet Estimate NORMAL Polychromasia 3+ Poikilocytosis 1+ Anisocytosis 3+ Microcytosis 3+ Ovalocytes 1+ Sodium Level 136 Potassium Level 4.0 Chloride Level 103 Carbon Dioxide Level 26 Anion Gap 7 Blood Urea Nitrogen 11 Creatinine 0.57 Est Glomerular Filtrat Rate mL/min > 60 Glucose Level 113 Calcium Level 8.6 Phosphorus Level 4.0 Magnesium Level 2.3 Total Bilirubin 0.2 Direct Bilirubin 0.00 Indirect Bilirubin 0.2 Aspartate Amino Transf (AST/SGOT) 14 L Alanine Aminotransferase (ALT/SGPT) 14 Alkaline Phosphatase 82 Total Protein 6.5 Albumin 3.4 Globulin 3.10 Albumin/Globulin Ratio 1.09 Subjective 24 Hr Interval Summary Free Text/Dictation c.o pain- over right chest cellulitis. Eyes: no complaints ENT: no complaints Respiratory: no complaints Cardiovascular: no complaints, edema Genitourinary: no complaints Skin: erythema Neurologic: no complaints Endocrine: no complaints Lymphatic: no complaints Psychological: nl mood/affect Immunologic: no complaints Exam/Review of Systems Exam Vitals Vital Signs Date Temp Pulse Resp B/P (MAP) Pulse Ox O2 O2 Flow FiO2 Time Delivery Rate 01/28/19 98 12:00 01/28/19 98.1 19 128/85 100 08:30 (99) 01/27/19 Room Air 14:00 Intake and Output 01/27/19 01/27/19 01/28/19 1515:00 23:00 07:00 IntakeIntake Total 1100 ml 550 ml 490 ml BalanceBalance 1100 ml 550 ml 490 ml Constitutional: alert, well developed Psych: nl mood/affect Head: atraumatic Eyes: EOMI, nl lids, nl sclera ENMT: nl external ears & nose Neck: non-tender Respiratory: clear to auscultation Cardiovascular: nl pulses Gastrointestinal: soft, non-tender, other Musculoskeletal: nl extremities to inspection Extremities: normal pulses Neurological: nl mental status, nl speech, other Skin: other (see pics on chart) Results Results 24hrs Laboratory Tests Test 01/28/19 04:46 White Blood Count 8.5 # Red Blood Count 2.32 #L Hemoglobin 6.4 *L Hematocrit 20.5 L Mean Corpuscular Volume 88.4 Mean Corpuscular Hemoglobin 27.6 L Mean Corpuscular Hemoglobin Concent 31.2 L Red Cell Distribution Width 24.5 H Platelet Count 278 # Mean Platelet Volume 9.5 Immature Granulocytes % 0.500 H Neutrophils % Segmented Neutrophils % (Manual) 79 H Band Neutrophils % (Manual) 6 H Lymphocytes % Lymphocytes % (Manual) 9 L Monocytes % Monocytes % (Manual) 6 Eosinophils % Basophils % Nucleated Red Blood Cells % 0.0 Immature Granulocytes # 0.040 H Neutrophils # Neutrophils # (Manual) 6.8 Band Neutrophils # 0.5 Lymphocytes (Manual) 0.7 L Lymphocytes # Monocytes # Monocytes # (Manual) 0.5 Eosinophils # Basophils # Nucleated Red Blood Cells # Platelet Estimate NORMAL Polychromasia 3+ Poikilocytosis 1+ Anisocytosis 3+ Microcytosis 3+ Ovalocytes 1+ Sodium Level 136 Potassium Level 4.0 Chloride Level 103 Carbon Dioxide Level 26 Anion Gap 7 Blood Urea Nitrogen 11 Creatinine 0.57 Est Glomerular Filtrat Rate mL/min > 60 Glucose Level 113 Calcium Level 8.6 Phosphorus Level 4.0 Magnesium Level 2.3 Total Bilirubin 0.2 Direct Bilirubin 0.00 Indirect Bilirubin 0.2 Aspartate Amino Transf (AST/SGOT) 14 L Alanine Aminotransferase (ALT/SGPT) 14 Alkaline Phosphatase 82 Total Protein 6.5 Albumin 3.4 Globulin 3.10 Albumin/Globulin Ratio 1.09 Medications Medication Current Medications IV Flush (NS 3 ml) 3 ml PER PROTOCOL IV ; Start 01/27/19 at 01:00 Acetaminophen (Tylenol Tab) 650 mg Q6H PRN PO .PAIN 1-3 OR TEMP; Start 01/27/19 at 01:00 Albuterol/ Ipratropium (Duoneb) 3 ml Q2H RESP THERAPY PRN HHN SHORTNESS OF BREATH; Start 01/27/19 at 01:00 Benazepril HCl (Lotensin) 10 mg DAILY PO Last administered on 01/28/19at 09:52; Admin Dose 10 MG; Start 01/27/19 at 09:00 Ferrous Sulfate (Ferrous Sulfate (Ec)) 325 mg BID PO Last administered on 01/28/19at 09:55; Admin Dose 325 MG; Start 01/27/19 at 09:00 Miscellaneous Information 100 mg HS PO ; Start 01/27/19 at 21:00; Status UNV Vancomycin HCl (Vanco Iv Per Pharmacy) VANCOMYCIN PER PHARMACY PER PROTOCOL XX ; Start 01/27/19 at 01:00 Cefepime HCl 50 ml @ 100 mls/hr Q12 IVPB Last administered on 01/28/19at 09:52; Admin Dose 100 MLS/HR; Start 01/27/19 at 01:00 Morphine Sulfate (morphine) 2 mg Q4H PRN IV SEVERE PAIN LEVEL 7-10 Last administered on 01/27/19at 09:07; Admin Dose 2 MG; Start 01/27/19 at 05:00 Vancomycin HCl 250 ml @ 125 mls/hr Q12H IVPB Last administered on 01/28/19 04:45; Admin Dose 125 MLS/HR; Start 01/27/19 at 16:00 Miscellaneous Information (*Rx Drug Level Order Reminder*) VANCO TR AT 1500 ONCE ONCE XX ; Start 01/28/19 at 15:00; Stop 01/28/19 at 15:01 Docusate Sodium (Colace) 100 mg BID PO Last administered on 01/28/19 09:52; Admin Dose 100 MG; Start 01/27/19 at 21:00 Metoclopramide HCl (Reglan) 10 mg Q6H PRN IV NAUSEA AND/OR VOMITING Last administered on 01/28/19 05:16; Admin Dose 10 MG; Start 01/27/19 at 16:30 Hydrochlorothiazide (Hydrochlorothiazide) 25 mg DAILY PO Last administered on 01/28/19 09:52; Admin Dose 25 MG; Start 01/28/19 at 09:00 Acetaminophen/ Hydrocodone Bitart ([place] (5/325)) 1 tab Q4H PRN PO MODERATE PAIN LEVEL 4-6 Last administered on 01/27/19 16:20; Admin Dose 1 TAB; Start 01/27/19 at 16:30 Acetaminophen/ Hydrocodone Bitart ([place]ennox (5/325)) 2 tab Q4H PRN PO PAIN LEVEL 7-10 Last administered on 01/28/19 13:56; Admin Dose 2 TAB; Start 01/27/19 at 16:30 JOSE PARSONS Jan 28, 2019 14:40
[2019-01-28] MEDS: CEFAZOLIN 1 GM/50 ML (PMX) 50 ML IVPB SCH (21:05)
--- NOTE | 2019-01-28 22:51 | CONS ---
DATE OF ADMISSION: 01/26/2019 DATE OF CONSULTATION: REASON FOR CONSULTATION: Staphylococcus aureus postoperative wound infection and a right chest cellu litis. HISTORY OF PRESENT ILLNESS: The patient is a 53-year-old white female who was admitted on 01/26/2019 with a chief complaint of drainage and redness at the site of a recent operative wound on the lateral chest. The patient had a stage IV carcinoma of the breast and had a recent radical mastectom y and then excision of a fungating recurrence in the same area approximately 2 weeks ago. The patien t did well and had her drainage tubes removed but subsequently began having redness and tenderness an d drainage from the most anterior drainage tube site. She went to [facility] emergency room an d was transferred to [facility]. The patient was admitted to the hospital and begu n treatment with vancomycin and cefepime and had blood cultures drawn and her wound cultured Staphylo coccus aureus, culture of the nares was negative for MRSA. The patient has been afebrile. Her white blood cell count was 8500, her hemoglobin is 6.4 grams, which is the result of chemotherapy, which i s being delayed because of her low hemoglobin. PAST MEDICAL HISTORY: Remarkable and that she is overweight and has hypertension. PHYSICAL EXAMINATION GENERAL: Reveals a well-developed, well-nourished, obese, mesomorphic, fair skinned white female who is alert, oriented, cooperative and pleasant and is in no acute distress. HEENT: The pupils are equal, round and react to light. Mouth has moist mucous membranes. NECK: Supple. There is no jugular venous distention. CHEST: Clear to auscultation. There is a rather large stapled surgical incision from approximately 4 inches lateral from the sternum extending around into the lower part of the axilla. Below that lat erally are 2 sites where drains were removed. The most anterior and inferior one has a small amount of purulent drainage stained with a little bit of blood on a 4 x 4 size area of gauze. There is mild induration superior to this area site but no tenderness. There is no redness of the skin except lazaro und where the drain sites are minimally. ABDOMEN: Firm, soft, no palpable organs or masses. EXTREMITIES: Reveal no edema, cyanosis or clubbing. INITIAL IMPRESSION: 1. Abscess and cellulitis of right breast wound site. 2. Status post operative radical mastectomy and chemotherapy for right breast. 3. Anemia due to chemotherapy. 4. Obesity. 5. Hypertension. RECOMMENDATIONS: I would change the patient's treatment to more specifically cefazolin and rifampin for 14 days. The patient may be changed to oral cephalexin after the patient stabilizes to complete approximately 14 days treatment as well as 600 mg a day of rifampin. Thank you for referring this patient to Dr. Nina Lopez. Dictated By: Gomez PEÑA MD for NINA LOPEZ MD EC/NTS Conf#: [id number] DID#: [id number]
[2019-01-29] VITALS (8 sets, daily range): BP systolic 136–147; BP diastolic 80–95; PULSE 65–86; RESP 17–19
[2019-01-29] MEDS: HYDROCODONE/APAP (5/325) TAB PO PRN ×4 (03:58→22:38)
[2019-01-29] MEDS: CEFAZOLIN 1 GM/50 ML (PMX) 50 ML IVPB SCH ×3 (05:25→21:32)
[2019-01-29] MEDS: BENAZEPRIL 10 MG TAB PO SCH (08:12)
[2019-01-29] MEDS: DOCUSATE SODIUM 100 MG CAP PO SCH ×2 (08:12→20:57)
[2019-01-29] MEDS: FERROUS SULFATE (EC) 325 MG TAB PO SCH ×2 (08:12→20:57)
[2019-01-29] MEDS: RIFAMPIN 300 MG CAP PO SCH (08:12)
[2019-01-29] MEDS: HYDROCHLOROTHIAZIDE 25 MG TAB PO SCH (08:13)
--- NOTE | 2019-01-29 11:29 | CONS ---
Assessment/Plan Assessment/Plan Hospital Course (Demo Recall) ID PROGRESS NOTE CURRENT ABX: DAY # Ancef + Rifampin x 14 days s/p Vanco IV + Cefepime 01/29/19 0502 01/29/19 0502 24H INTERVAL SUMMARY * Clinically stable =A/A/O, coping as best as she can, determined to continue fight -- no fevers, VSS, reporting pain in right axillary nerve plexus * DC Planning -- home with PO ABX MICRO/OTHER * 01/25/19: (-)MRSA * 01/27/19 WOUND CULTURE Final Organism 1 STAPHYLOCOCCUS AUREUS QUANTITY 2+ S AUREUS M.I.C. RX --------- --- CEFAZOLIN S CIPROFLOXACIN <=0.5 S CLINDAMYCIN R DOXYCYCLINE S ERYTHROMYCIN >=8 R LEVOFLOXACIN 0.25 S OXACILLIN 0.5 S PENICILLIN-G >=0.5 R RIFAMPIN <=0.5 S VANCOMYCIN <=0.5 S TRIMETHOPRIM/SULFAMETHOXAZOLE <=10 S PHYSICAL EXAMINATION: GENERAL: VSS HEENT: AT, NC, anicteric NECK: Supple, Trach secure to Vent CHEST: Equal chest rise bilaterally, without dyspnea on observation Post r-mastectomy status with ava/stitches intact, resolving erythema at right chest wall under axillary incision site HEART: Pulse RRR ABDOMEN: Soft / NT EXTREMITIES: Warm, dry SKIN: No rash, no diaphoresis ID ASSESSMENT 53 yo F admit with: 1. Abscess and cellulitis of right breast wound site. 2. Status post operative radical mastectomy and chemotherapy for right breast cancer -> STG IV 3. Anemia due to chemotherapy. 4. Obesity. 5. Hypertension. (-)MRSA Nares ABX ALLERGIES: None to ABX INVASIVES: PIV, CURRENT ABX: DAY # Ancef + Rifampin x 14 days s/p Vanco IV + Cefepime ID RECOMMENDATIONS/PLAN: 1. Per ID Attending consult note: May DC on PO ABX: Ancef + Rifampin to complete 14 days total ABX Tx . Consultation Date/Type/Reason Admit Date/Time Jan 26, 2019 at 20:47 Initial Consult Date Date/Time of Note DATE: 01/29/19 TIME: 11:28 Exam/Review of Systems Exam Vitals Vital Signs Date Temp Pulse Resp B/P (MAP) Pulse Ox O2 O2 Flow FiO2 Time Delivery Rate 01/29/19 98.2 65 18 147/95 99 11:13 (112) 01/29/19 Room Air 03:45 Intake and Output 01/28/19 01/28/19 01/29/19 1515:00 23:00 07:00 IntakeIntake Total 1250 ml 750 ml BalanceBalance 1250 ml 750 ml Results Result Diagram: 01/29/19 0502 01/29/19 0502 Results 24hrs Laboratory Tests Test 01/29/19 05:02 White Blood Count 9.9 Red Blood Count 3.48 #L Hemoglobin 9.8 #L Hematocrit 30.3 #L Mean Corpuscular Volume 87.1 Mean Corpuscular Hemoglobin 28.2 L Mean Corpuscular Hemoglobin Concent 32.3 Red Cell Distribution Width 19.9 H Platelet Count 307 Mean Platelet Volume 9.9 Immature Granulocytes % 0.800 H Neutrophils % 75.1 Lymphocytes % 14.7 L Monocytes % 8.8 Eosinophils % 0.3 Basophils % 0.3 Nucleated Red Blood Cells % 0.0 Immature Granulocytes # 0.080 H Neutrophils # 7.5 Lymphocytes # 1.5 Monocytes # 0.9 Eosinophils # 0.0 Basophils # 0.0 Nucleated Red Blood Cells # 0.0 Sodium Level 136 Potassium Level 3.5 Chloride Level 101 Carbon Dioxide Level 25 Anion Gap 10 Blood Urea Nitrogen 11 Creatinine 0.56 Est Glomerular Filtrat Rate mL/min > 60 Glucose Level 121 Calcium Level 8.6 Medications Medication Current Medications IV Flush (NS 3 ml) 3 ml PER PROTOCOL IV ; Start 01/27/19 at 01:00 Acetaminophen (Tylenol Tab) 650 mg Q6H PRN PO .PAIN 1-3 OR TEMP; Start 01/27/19 at 01:00 Albuterol/ Ipratropium (Duoneb) 3 ml Q2H RESP THERAPY PRN HHN SHORTNESS OF BREATH; Start 01/27/19 at 01:00 Benazepril HCl (Lotensin) 10 mg DAILY PO Last administered on 01/29/19at 08:12; Admin Dose 10 MG; Start 01/27/19 at 09:00 Ferrous Sulfate (Ferrous Sulfate (Ec)) 325 mg BID PO Last administered on 01/29/19at 08:12; Admin Dose 325 MG; Start 01/27/19 at 09:00 Miscellaneous Information 100 mg HS PO ; Start 01/27/19 at 21:00; Status UNV Morphine Sulfate (morphine) 2 mg Q4H PRN IV SEVERE PAIN LEVEL 7-10 Last administered on 01/27/19 09:07; Admin Dose 2 MG; Start 01/27/19 at 05:00 Docusate Sodium (Colace) 100 mg BID PO Last administered on 01/29/19 08:12; Admin Dose 100 MG; Start 01/27/19 at 21:00 Metoclopramide HCl (Reglan) 10 mg Q6H PRN IV NAUSEA AND/OR VOMITING Last administered on 01/28/19 05:16; Admin Dose 10 MG; Start 01/27/19 at 16:30 Hydrochlorothiazide (Hydrochlorothiazide) 25 mg DAILY PO Last administered on 01/29/19 08:13; Admin Dose 25 MG; Start 01/28/19 at 09:00 Acetaminophen/ Hydrocodone Bitart ([place] (5/325)) 1 tab Q4H PRN PO MODERATE PAIN LEVEL 4-6 Last administered on 01/28/19 21:09; Admin Dose 1 TAB; Start 01/27/19 at 16:30 Acetaminophen/ Hydrocodone Bitart ([place] (5/325)) 2 tab Q4H PRN PO PAIN LEVEL 7-10 Last administered on 01/29/19 10:54; Admin Dose 2 TAB; Start 01/27/19 at 16:30 Rifampin (Rifampin) 600 mg DAILY PO Last administered on 01/29/19at 08:12; Admin Dose 600 MG; Start 01/29/19 at 09:00; Stop 02/12/19 at 10:00 Cefazolin Sodium 50 ml @ 100 mls/hr Q8 IVPB Last administered on 01/29/19 05:25; Admin Dose 100 MLS/HR; Start 01/28/19 at 22:00; Stop 02/12/19 at 22:00 MEDINA HAINES NP Jan 29, 2019 11:29
--- NOTE | 2019-01-29 14:36 | PN ---
DATE: 01/29/2019 SUBJECTIVE: Feels just slightly better, still has relatively too much pain in the anterolateral part of the chest wall. OBJECTIVE: Awake, alert, oriented x3. VITAL SIGNS: Temperature 98.2, heart rate 65, respiration 18, blood pressure 147/95, saturation 99% on room air. LABORATORY DATA: Today, WBC 9900 with 75% segmented. Hemoglobin after 3 units of blood transfusion has increased to 9.8, hematocrit 30, platelet is 3.7. Chemistry: Sodium, potassium, BUN, creatinine within normal limits. Microbiology: MRSA screening was negative. The Gram stain and final wound c ulture has grown Staph aureus, 1+. Sensitivity has been determined to multiple antibiotics including cefazolin and rifampin. PHYSICAL EXAMINATION: HEART: Regular. LUNGS: Clear. Chest wall, the area of cellulitis, induration over the incision line at the anterola teral area of the incision is almost the same as yesterday when I saw the patient, may be slightly be tter. ASSESSMENT/PLAN: This is a 53-year-old female who had modified radical mastectomy with axillary diss ection in August last year for cancer of the right breast, and later on she had chemotherapy and on the first day of 01/2019 she presented with the locally metastasis of the cancer to the large area of the skin of the chest wall on the right side, wide excision of the skin and subcutaneous tissue and in some areas, some part of the muscle of the chest wall was excised, flaps were mobilized. Then anton sure was performed. The patient apparently was doing relatively fine up to 6 days ago when the drain s were removed and after that, patient started having pain and some redness and some feeling of fever . So eventually was transferred from another hospital to the emergency room here was found to have c ellulitis and infection of the incision line. Culture was sent which has grown Staphylococcus aureus with sensitivity has been determined in the specimen culture. Dr. Billy, the Infectious Disease w is covering Dr. Lafleur has seen the patient. He suggested antibiotic to be changed to cefazolin a nd rifampin and that has been done as of last night. It should be mentioned that the patient's hemog lobin was 6.4. The patient received 3 units of blood and today the hemoglobin after 2 units of blood , has increased to 9.9, hematocrit 30.3. Differential WBC which was 79% segmented and 6% bands on ad mission, today is only 75% segmented. The bands has been cleared. PLAN: Continue antibiotic IV for the time being. Dictated By: SHERI FAIRBANKS MD PS/NTS Conf#: [id number] DID#: [id number]
--- NOTE | 2019-01-29 15:34 | PN ---
Date/Time of Note Date/Time of Note DATE: 01/29/19 TIME: 15:33 Assessment/Plan VTE Prophylaxis Risk score (from [facility])>0 risk: 4 SCD applied (from [facility]): Yes SCD contraindicated: other Pharmacological prophylaxis: other Pharm contraindication: other Lines/Catheters [facility]ter Type (from [facility] port-a-cath Central line still needed: Yes Urinary Cath still in place: No Assessment/Plan Assessment/Plan -Right chest cellulitis, obtain wound culture, continue broad-spectrum antibiotics. - per Dr. Lafleur in infection disease consultation. -Right chest stage IV cancer, post right radical mastectomy and chemotherapy. - Dr. Cristina in surgical consultation. -Anemia most likely secondary to chemotherapy and malignancy. - 3 PRBC; got 1 unit PRBC - am CBC -Mild hypokalemia- RESOLVED Further recommendations based on clinical course. Plan of care discussed with Dr. Werner. Result Diagram: 01/29/19 0502 01/29/19 0502 Results 24hrs Laboratory Tests Test 01/29/19 05:02 White Blood Count 9.9 Red Blood Count 3.48 #L Hemoglobin 9.8 #L Hematocrit 30.3 #L Mean Corpuscular Volume 87.1 Mean Corpuscular Hemoglobin 28.2 L Mean Corpuscular Hemoglobin Concent 32.3 Red Cell Distribution Width 19.9 H Platelet Count 307 Mean Platelet Volume 9.9 Immature Granulocytes % 0.800 H Neutrophils % 75.1 Lymphocytes % 14.7 L Monocytes % 8.8 Eosinophils % 0.3 Basophils % 0.3 Nucleated Red Blood Cells % 0.0 Immature Granulocytes # 0.080 H Neutrophils # 7.5 Lymphocytes # 1.5 Monocytes # 0.9 Eosinophils # 0.0 Basophils # 0.0 Nucleated Red Blood Cells # 0.0 Sodium Level 136 Potassium Level 3.5 Chloride Level 101 Carbon Dioxide Level 25 Anion Gap 10 Blood Urea Nitrogen 11 Creatinine 0.56 Est Glomerular Filtrat Rate mL/min > 60 Glucose Level 121 Calcium Level 8.6 Exam/Review of Systems Exam Vitals Vital Signs Date Temp Pulse Resp B/P (MAP) Pulse Ox O2 O2 Flow FiO2 Time Delivery Rate 01/29/19 86 12:02 01/29/19 98.2 18 147/95 99 11:13 (112) 01/29/19 Room Air 03:45 Intake and Output 01/28/19 01/28/19 01/29/19 1414:59 22:59 06:59 IntakeIntake Total 1250 ml 750 ml BalanceBalance 1250 ml 750 ml Constitutional: alert, oriented, well developed Psych: nl mood/affect Head: atraumatic Eyes: EOMI, nl lids, nl sclera ENMT: nl external ears & nose Neck: non-tender Respiratory: clear to auscultation Cardiovascular: nl pulses Gastrointestinal: soft, non-tender Musculoskeletal: nl extremities to inspection Extremities: normal pulses Neurological: nl speech Skin: other Lymph: nontender Results Results 24hrs Laboratory Tests Test 01/29/19 05:02 White Blood Count 9.9 Red Blood Count 3.48 #L Hemoglobin 9.8 #L Hematocrit 30.3 #L Mean Corpuscular Volume 87.1 Mean Corpuscular Hemoglobin 28.2 L Mean Corpuscular Hemoglobin Concent 32.3 Red Cell Distribution Width 19.9 H Platelet Count 307 Mean Platelet Volume 9.9 Immature Granulocytes % 0.800 H Neutrophils % 75.1 Lymphocytes % 14.7 L Monocytes % 8.8 Eosinophils % 0.3 Basophils % 0.3 Nucleated Red Blood Cells % 0.0 Immature Granulocytes # 0.080 H Neutrophils # 7.5 Lymphocytes # 1.5 Monocytes # 0.9 Eosinophils # 0.0 Basophils # 0.0 Nucleated Red Blood Cells # 0.0 Sodium Level 136 Potassium Level 3.5 Chloride Level 101 Carbon Dioxide Level 25 Anion Gap 10 Blood Urea Nitrogen 11 Creatinine 0.56 Est Glomerular Filtrat Rate mL/min > 60 Glucose Level 121 Calcium Level 8.6 Medications Medication Current Medications IV Flush (NS 3 ml) 3 ml PER PROTOCOL IV ; Start 01/27/19 at 01:00 Acetaminophen (Tylenol Tab) 650 mg Q6H PRN PO .PAIN 1-3 OR TEMP; Start 01/27/19 at 01:00 Albuterol/ Ipratropium (Duoneb) 3 ml Q2H RESP THERAPY PRN HHN SHORTNESS OF BREATH; Start 01/27/19 at 01:00 Benazepril HCl (Lotensin) 10 mg DAILY PO Last administered on 01/29/19at 08:12; Admin Dose 10 MG; Start 01/27/19 at 09:00 Ferrous Sulfate (Ferrous Sulfate (Ec)) 325 mg BID PO Last administered on 3/17/19at 08:12; Admin Dose 325 MG; Start 01/27/19 at 09:00 Miscellaneous Information 100 mg HS PO ; Start 01/27/19 at 21:00; Status UNV Morphine Sulfate (morphine) 2 mg Q4H PRN IV SEVERE PAIN LEVEL 7-10 Last administered on 01/27/19 09:07; Admin Dose 2 MG; Start 01/27/19 at 05:00 Docusate Sodium (Colace) 100 mg BID PO Last administered on 01/29/19 08:12; Admin Dose 100 MG; Start 01/27/19 at 21:00 Metoclopramide HCl (Reglan) 10 mg Q6H PRN IV NAUSEA AND/OR VOMITING Last administered on 01/28/19 05:16; Admin Dose 10 MG; Start 01/27/19 at 16:30 Hydrochlorothiazide (Hydrochlorothiazide) 25 mg DAILY PO Last administered on 01/29/19 08:13; Admin Dose 25 MG; Start 01/28/19 at 09:00 Acetaminophen/ Hydrocodone Bitart ([place] (5/325)) 1 tab Q4H PRN PO MODERATE PAIN LEVEL 4-6 Last administered on 01/28/19 21:09; Admin Dose 1 TAB; Start 01/27/19 at 16:30 Acetaminophen/ Hydrocodone Bitart ([place] (5/325)) 2 tab Q4H PRN PO PAIN LEVEL 7-10 Last administered on 01/29/19 10:54; Admin Dose 2 TAB; Start 01/27/19 at 16:30 Rifampin (Rifampin) 600 mg DAILY PO Last administered on 01/29/19 08:12; Admin Dose 600 MG; Start 01/29/19 at 09:00; Stop 02/12/19 at 10:00 Cefazolin Sodium 50 ml @ 100 mls/hr Q8 IVPB Last administered on 01/29/19 13:39; Admin Dose 100 MLS/HR; Start 01/28/19 at 22:00; Stop 02/12/19 at 22:00 JOSE PARSONS Jan 29, 2019 15:34
[2019-01-29] MEDS: METOCLOPRAMIDE 10 MG INJ IV PRN (19:43)
[2019-01-29] MEDS: COLLAGENASE 5 GM (UD JAR) TOP SCH (23:30)
[2019-01-30 02:13] VITALS: BP 149/90; PULSE 75; RESP 19
[2019-01-30] MEDS: HYDROCODONE/APAP (5/325) TAB PO PRN ×4 (04:51→20:04)
[2019-01-30] MEDS: CEFAZOLIN 1 GM/50 ML (PMX) 50 ML IVPB SCH ×3 (05:59→22:10)
[2019-01-30 08:25] VITALS: BP 149/90; PULSE 97; RESP 17
[2019-01-30] MEDS: HYDROCHLOROTHIAZIDE 25 MG TAB PO SCH (08:32)
[2019-01-30] MEDS: BENAZEPRIL 10 MG TAB PO SCH (08:32)
[2019-01-30] MEDS: FERROUS SULFATE (EC) 325 MG TAB PO SCH ×2 (08:32→21:03)
[2019-01-30] MEDS: DOCUSATE SODIUM 100 MG CAP PO SCH ×2 (08:32→21:03)
[2019-01-30] MEDS: COLLAGENASE 5 GM (UD JAR) TOP SCH ×2 (08:33→21:03)
[2019-01-30] MEDS: RIFAMPIN 300 MG CAP PO SCH (08:33)
--- NOTE | 2019-01-30 13:23 | CONS ---
Assessment/Plan Assessment/Plan Hospital Course (Demo Recall) Patient is alert wants to go home no fevers overnight. No labs Wound culture grew staph aureus Antimicrobials: Ancef and rifampin Physical examination: Well-developed well-nourished middle-aged woman who is alert in no distress. Head atraumatic normocephalic. Neck is supple. Chest rise symmetrical breath sounds clear. Patient has right-sided incision with ava clean dry and intact there is a wound with some drainage below it erythema is getting better. Heart: S1-S2. Abdomen soft bowel sounds present. Extremities without cyanosis. Assessment: 1. Right breast wound site abscess and cellulitis, resolving 2. Status post operative radical mastectomy and chemotherapy for right breast 3. Hypertension 4. Breast cancer Plan: Patient remains stable and overall doing better, continue present care and IV antibiotics for now, follow surgical recommendations Consultation Date/Type/Reason Admit Date/Time Jan 26, 2019 at 20:47 Initial Consult Date Type of Consult id Date/Time of Note DATE: 01/30/19 TIME: 13:22 Exam/Review of Systems Exam Vitals Vital Signs Date Temp Pulse Resp B/P (MAP) Pulse Ox O2 O2 Flow FiO2 Time Delivery Rate 01/30/19 98.9 97 17 149/90 96 Room Air 08:25 (109) Intake and Output 01/29/19 01/29/19 01/30/19 1515:00 23:00 07:00 IntakeIntake Total 50 ml 50 ml 50 ml BalanceBalance 50 ml 50 ml 50 ml Results Result Diagram: 01/29/19 0502 01/29/19 0502 Results 24hrs Laboratory Tests Test 01/30/19 07:36 Lab Scanned Report BLOOD TRANSFUSION Medications Medication Current Medications IV Flush (NS 3 ml) 3 ml PER PROTOCOL IV ; Start 01/27/19 at 01:00 Acetaminophen (Tylenol Tab) 650 mg Q6H PRN PO .PAIN 1-3 OR TEMP; Start 01/27/19 at 01:00 Albuterol/ Ipratropium (Duoneb) 3 ml Q2H RESP THERAPY PRN HHN SHORTNESS OF BREATH; Start 01/27/19 at 01:00 Benazepril HCl (Lotensin) 10 mg DAILY PO Last administered on 01/30/19at 08:32; Admin Dose 10 MG; Start 01/27/19 at 09:00 Ferrous Sulfate (Ferrous Sulfate (Ec)) 325 mg BID PO Last administered on 01/30/19 08:32; Admin Dose 325 MG; Start 01/27/19 at 09:00 Miscellaneous Information 100 mg HS PO ; Start 01/27/19 at 21:00; Status UNV Morphine Sulfate (morphine) 2 mg Q4H PRN IV SEVERE PAIN LEVEL 7-10 Last administered on 01/27/19 09:07; Admin Dose 2 MG; Start 01/27/19 at 05:00 Docusate Sodium (Colace) 100 mg BID PO Last administered on 01/30/19 08:32; Admin Dose 100 MG; Start 01/27/19 at 21:00 Metoclopramide HCl (Reglan) 10 mg Q6H PRN IV NAUSEA AND/OR VOMITING Last administered on 01/29/19 19:43; Admin Dose 10 MG; Start 01/27/19 at 16:30 Hydrochlorothiazide (Hydrochlorothiazide) 25 mg DAILY PO Last administered on 01/30/19 08:32; Admin Dose 25 MG; Start 01/28/19 at 09:00 Acetaminophen/ Hydrocodone Bitart ([facility] (5/325)) 1 tab Q4H PRN PO MODERATE PAIN LEVEL 4-6 Last administered on 01/28/19 21:09; Admin Dose 1 TAB; Start 01/27/19 at 16:30 Acetaminophen/ Hydrocodone Bitart ([facility] (5/325)) 2 tab Q4H PRN PO PAIN LEVEL 7-10 Last administered on 01/30/19 09:04; Admin Dose 2 TAB; Start 01/27/19 at 16:30 Rifampin (Rifampin) 600 mg DAILY PO Last administered on 01/30/19 08:33; Admin Dose 600 MG; Start 01/29/19 at 09:00; Stop 02/12/19 at 10:00 Cefazolin Sodium 50 ml @ 100 mls/hr Q8 IVPB Last administered on 01/30/19 05:59; Admin Dose 100 MLS/HR; Start 01/28/19 at 22:00; Stop 02/12/19 at 22:00 Collagenase (Santyl) 1 applic BID TOP Last administered on 01/30/19 08:33; Admin Dose 1 APPLIC; Start 01/29/19 at 22:00 DIMA FAY NP Jan 30, 2019 13:23
[2019-01-30 14:02] VITALS: BP 179/93; RESP 17
[2019-01-30] MEDS ORDERED: HYDR-3601 PO (14:23)
[2019-01-30] MEDS ORDERED: SAN30GM TOP (14:23)
[2019-01-30] MEDS ORDERED: RIF120L PO (14:23)
[2019-01-30] MEDS ORDERED: CEPH250S33 PO (14:23)
--- NOTE | 2019-01-30 16:55 | PN ---
DATE: 01/30/2019 SUBJECTIVE: Complains of pain mainly in the right lateral and posterior chest wall area. No nausea. No vomiting. Tolerating diet. OBJECTIVE: GENERAL: Awake, alert, oriented. VITAL SIGNS: Temperature maximum today 98.9, heart rate 75 and also 97, respirations 17, blood press ure 149/90, saturation 96% on room air. HEART: Regular. LUNGS: Clear. CHEST WALL: There is slight decrease in the cellulitis, maybe 30%, but the induration still persists around the lateral aspect of the incision line. It is not tender. Actually, it is numb. LABORATORY DATA: There is no lab done today. ASSESSMENT: The patient is a 53-year-old with metastatic cancer of the breast to the chest wall, who underwent extensive resection of the skin and subcutaneous tissue of the chest wall on the right rod e about 2-1/2 weeks ago. Four days ago, patient presented with pain and cellulitis and immediately s tarted on antibiotics, gradually getting better but she continues to complain of pain, and the pain i s so much that she required [place] 5/325 two tablets every 4 to 6 hours p.r.n. for pain. The Infectio us Disease note appreciated. PLAN: I think we should continue giving the patient IV antibiotics for a couple of more days at [facility], and when the wound looks much better, we may discharge the patient to continue antibiotic by mouth for total 2 weeks' duration. Dictated By: SHERI PARHAM/NTS Conf#: [id number] DID#: [id number]
[2019-01-30 20:00] VITALS: BP 156/87; PULSE 85; RESP 18
[2019-01-30] MEDS: morphine 2 MG INJ IV PRN (21:12)
[2019-01-31] MEDS: HYDROCODONE/APAP (5/325) TAB PO PRN ×5 (00:27→20:12)
[2019-01-31 02:00] VITALS: BP 129/81; PULSE 69; RESP 17
[2019-01-31] MEDS: CEFAZOLIN 1 GM/50 ML (PMX) 50 ML IVPB SCH ×3 (05:34→22:04)
[2019-01-31 08:26] VITALS: BP 137/92; PULSE 70; RESP 16
[2019-01-31] MEDS: RIFAMPIN 300 MG CAP PO SCH (09:19)
[2019-01-31] MEDS: COLLAGENASE 5 GM (UD JAR) TOP SCH ×2 (09:20→20:58)
[2019-01-31] MEDS: DOCUSATE SODIUM 100 MG CAP PO SCH ×2 (09:20→20:58)
[2019-01-31] MEDS: FERROUS SULFATE (EC) 325 MG TAB PO SCH ×2 (09:20→20:58)
[2019-01-31] MEDS: HYDROCHLOROTHIAZIDE 25 MG TAB PO SCH (09:20)
[2019-01-31] MEDS: BENAZEPRIL 10 MG TAB PO SCH (09:20)
[2019-01-31 14:30] VITALS: BP 133/88; PULSE 72; RESP 16
--- NOTE | 2019-01-31 15:08 | CONS ---
Assessment/Plan Assessment/Plan Hospital Course (Demo Recall) Looks comfortable, no fevers Wound culture grew staph aureus Antimicrobials: Ancef and rifampin Physical examination: Well-developed well-nourished middle-aged woman who is alert in no distress. Head atraumatic normocephalic. Neck is supple. Chest rise symmetrical breath sounds clear. Patient has right-sided incision with ava clean dry and intact there is a wound with some drainage below it erythema is getting better. Heart: S1-S2. Abdomen soft bowel sounds present. Extremities without cyanosis. Assessment: 1. Right breast wound site abscess and cellulitis, resolving 2. Status post operative radical mastectomy and chemotherapy for right breast 3. Hypertension 4. Breast cancer Plan: Patient remains stable anticipate discharge home oral antibiotics when cleared by surgery Consultation Date/Type/Reason Admit Date/Time Jan 26, 2019 at 20:47 Initial Consult Date Type of Consult id Date/Time of Note DATE: 01/31/19 TIME: 15:07 Exam/Review of Systems Exam Vitals Vital Signs Date Temp Pulse Resp B/P (MAP) Pulse Ox O2 O2 Flow FiO2 Time Delivery Rate 01/31/19 98.3 72 16 133/88 98 14:30 (103) 01/30/19 Room Air 14:02 Intake and Output 01/30/19 01/30/19 01/31/19 1515:00 23:00 07:00 IntakeIntake Total 320 ml 100 ml 50 ml BalanceBalance 320 ml 100 ml 50 ml Results Result Diagram: 01/31/19 0450 01/29/19 0502 Results 24hrs Laboratory Tests Test 01/31/19 04:50 White Blood Count 7.5 # Red Blood Count 3.57 L Hemoglobin 10.0 L Hematocrit 31.0 L Mean Corpuscular Volume 86.8 Mean Corpuscular Hemoglobin 28.0 L Mean Corpuscular Hemoglobin Concent 32.3 Red Cell Distribution Width 19.8 H Platelet Count 316 Mean Platelet Volume 9.6 Immature Granulocytes % 0.700 H Neutrophils % 66.9 Lymphocytes % 19.7 Monocytes % 11.6 H Eosinophils % 0.7 Basophils % 0.4 Nucleated Red Blood Cells % 0.0 Immature Granulocytes # 0.050 H Neutrophils # 5.1 Lymphocytes # 1.5 Monocytes # 0.9 Eosinophils # 0.1 Basophils # 0.0 Nucleated Red Blood Cells # 0.0 Medications Medication Current Medications IV Flush (NS 3 ml) 3 ml PER PROTOCOL IV ; Start 01/27/19 at 01:00 Acetaminophen (Tylenol Tab) 650 mg Q6H PRN PO .PAIN 1-3 OR TEMP; Start 01/27/19 at 01:00 Albuterol/ Ipratropium (Duoneb) 3 ml Q2H RESP THERAPY PRN HHN SHORTNESS OF BREATH; Start 01/27/19 at 01:00 Benazepril HCl (Lotensin) 10 mg DAILY PO Last administered on 01/31/19 09:20; Admin Dose 10 MG; Start 01/27/19 at 09:00 Ferrous Sulfate (Ferrous Sulfate (Ec)) 325 mg BID PO Last administered on 01/31/19 09:20; Admin Dose 325 MG; Start 01/27/19 at 09:00 Miscellaneous Information 100 mg HS PO ; Start 01/27/19 at 21:00; Status UNV Morphine Sulfate (morphine) 2 mg Q4H PRN IV SEVERE PAIN LEVEL 7-10 Last admin istered on 01/30/19 21:12; Admin Dose 2 MG; Start 01/27/19 at 05:00 Docusate Sodium (Colace) 100 mg BID PO Last administered on 01/31/19 09:20; Admin Dose 100 MG; Start 01/27/19 at 21:00 Metoclopramide HCl (Reglan) 10 mg Q6H PRN IV NAUSEA AND/OR VOMITING Last administered on 01/29/19 19:43; Admin Dose 10 MG; Start 01/27/19 at 16:30 Hydrochlorothiazide (Hydrochlorothiazide) 25 mg DAILY PO Last administered on 01/31/19 09:20; Admin Dose 25 MG; Start 01/28/19 at 09:00 Acetaminophen/ Hydrocodone Bitart ([place] (5/325)) 1 tab Q4H PRN PO MODERATE PAIN LEVEL 4-6 Last administered on 01/28/19 21:09; Admin Dose 1 TAB; Start 01/27/19 at 16:30 Acetaminophen/ Hydrocodone Bitart ([place] (5/325)) 2 tab Q4H PRN PO PAIN LEVEL 7-10 Last administered on 01/31/19 14:28; Admin Dose 2 TAB; Start 01/27/19 at 16:30 Rifampin (Rifampin) 600 mg DAILY PO Last administered on 01/31/19at 09:19; Admin Dose 600 MG; Start 01/29/19 at 09:00; Stop 02/12/19 at 10:00 Cefazolin Sodium 50 ml @ 100 mls/hr Q8 IVPB Last administered on 01/31/19at 14:24; Admin Dose 100 MLS/HR; Start 01/28/19 at 22:00; Stop 02/12/19 at 22:00 Collagenase (Santyl) 1 applic BID TOP Last administered on 01/31/19at 09:20; Admin Dose 1 APPLIC; Start 01/29/19 at 22:00 DIMA FAY NP Jan 31, 2019 15:08
--- NOTE | 2019-01-31 15:42 | PN ---
DATE: 01/31/2019 SUBJECTIVE: Feels better today. OBJECTIVE: GENERAL: Awake, alert, oriented x3. VITAL SIGNS: Stable. No fever. HEART: Regular. LUNGS: Clear. ABDOMEN: Soft. SKIN: Chest wall cellulitis over the anterolateral aspect of the right chest wall on the vicinity ar ound the incision line has improved. To me, it appears that at least 50% has improved. PLAN: Continue antibiotics IV as has been ordered by infectious disease. We will try to remove the ava tomorrow and the patient has also sutures, but part of it may be removed tomorrow and some of it may be removed following day or the other days. Dictated By: SHERI FAIRBANKS MD PS/NTS Conf#: [id number] DID#: [id number] CC: DERRICK IRENE MD; JENNY HOPKINS MD; CAROLYN GOLDSTEIN;*EndCC*
[2019-01-31] MEDS: morphine 2 MG INJ IV PRN (16:42)
[2019-01-31 20:00] VITALS: BP 135/89; PULSE 84; RESP 18
--- NOTE | 2019-01-31 20:38 | PN ---
Date/Time of Note Date/Time of Note DATE: Late entry for 01/30/2019 TIME: Patient is seen at [id number] Assessment/Plan VTE Prophylaxis Risk score (from Ns)>0 risk: 1 SCD applied (from Ns): Yes Pharmacological prophylaxis: NA/contraindicated Pharm contraindication: bleeding Lines/Catheters IV [facility] port a cath Urinary Cath still in place: No Assessment/Plan Hospital Course Patient remains afebrile pain is adequately controlled with [place], patient wants to go home, ID recommendation the patient can be discharged on p.o. antibiotics: Keflex and rifampin, prescriptions are on the chart, DC planning, awaiting surgical clearance. Assessment/Plan -Right chest cellulitis, wound culture is positive for staph aureus, patient is currently on IV Ancef and rifampin. Dr. Lafleur is following in infection disease consultation. -Status post of resection of R chest wall tumor on January [address] Cristina -Right breast cancer stage IV, s/p right radical mastectomy and chemotherapy. Dr. Cristina is following in surgical consultation. -Anemia most likely secondary to chemotherapy and malignancy. Transfuse as needed. Further recommendations based on clinical course. Plan of care discussed with Dr. Werner. Result Diagram: 01/31/19 0450 01/29/19 0502 Results 24hrs Laboratory Tests Test 01/31/19 04:50 White Blood Count 7.5 # Red Blood Count 3.57 L Hemoglobin 10.0 L Hematocrit 31.0 L Mean Corpuscular Volume 86.8 Mean Corpuscular Hemoglobin 28.0 L Mean Corpuscular Hemoglobin Concent 32.3 Red Cell Distribution Width 19.8 H Platelet Count 316 Mean Platelet Volume 9.6 Immature Granulocytes % 0.700 H Neutrophils % 66.9 Lymphocytes % 19.7 Monocytes % 11.6 H Eosinophils % 0.7 Basophils % 0.4 Nucleated Red Blood Cells % 0.0 Immature Granulocytes # 0.050 H Neutrophils # 5.1 Lymphocytes # 1.5 Monocytes # 0.9 Eosinophils # 0.1 Basophils # 0.0 Nucleated Red Blood Cells # 0.0 Exam/Review of Systems Exam Vitals Vital Signs Date Temp Pulse Resp B/P (MAP) Pulse Ox O2 O2 Flow FiO2 Time Delivery Rate 01/31/19 98.3 72 16 133/88 98 14:30 (103) 01/30/19 Room Air 14:02 Intake and Output 01/30/19 01/30/19 01/31/19 1515:00 23:00 07:00 IntakeIntake Total 320 ml 100 ml 50 ml BalanceBalance 320 ml 100 ml 50 ml Exam Constitutional: alert, oriented Respiratory: clear to auscultation Cardiovascular: nl pulses Gastrointestinal: soft, non-tender Musculoskeletal: nl extremities to inspection Extremities: normal pulses Neurological: nl mental status Skin: other (Right chest surgical incision with erythema and tenderness, right chest lateral wounds from prior [place] with small amount of drainage.) Results Results 24hrs Laboratory Tests Test 01/31/19 04:50 White Blood Count 7.5 # Red Blood Count 3.57 L Hemoglobin 10.0 L Hematocrit 31.0 L Mean Corpuscular Volume 86.8 Mean Corpuscular Hemoglobin 28.0 L Mean Corpuscular Hemoglobin Concent 32.3 Red Cell Distribution Width 19.8 H Platelet Count 316 Mean Platelet Volume 9.6 Immature Granulocytes % 0.700 H Neutrophils % 66.9 Lymphocytes % 19.7 Monocytes % 11.6 H Eosinophils % 0.7 Basophils % 0.4 Nucleated Red Blood Cells % 0.0 Immature Granulocytes # 0.050 H Neutrophils # 5.1 Lymphocytes # 1.5 Monocytes # 0.9 Eosinophils # 0.1 Basophils # 0.0 Nucleated Red Blood Cells # 0.0 Medications Medication Current Medications IV Flush (NS 3 ml) 3 ml PER PROTOCOL IV ; Start 01/27/19 at 01:00 Acetaminophen (Tylenol Tab) 650 mg Q6H PRN PO .PAIN 1-3 OR TEMP; Start 01/27/19 at 01:00 Albuterol/ Ipratropium (Duoneb) 3 ml Q2H RESP THERAPY PRN HHN SHORTNESS OF BREATH; Start 01/27/19 at 01:00 Benazepril HCl (Lotensin) 10 mg DAILY PO Last administered on 01/31/19at 09:20; Admin Dose 10 MG; Start 01/27/19 at 09:00 Ferrous Sulfate (Ferrous Sulfate (Ec)) 325 mg BID PO Last administered on 01/31/19at 09:20; Admin Dose 325 MG; Start 01/27/19 at 09:00 Morphine Sulfate (morphine) 2 mg Q4H PRN IV SEVERE PAIN LEVEL 7-10 Last administered on 3/19/19at 16:42; Admin Dose 2 MG; Start 01/27/19 at 05:00 Docusate Sodium (Colace) 100 mg BID PO Last administered on 01/31/19 09:20; Admin Dose 100 MG; Start 01/27/19 at 21:00 Metoclopramide HCl (Reglan) 10 mg Q6H PRN IV NAUSEA AND/OR VOMITING Last administered on 01/29/19 19:43; Admin Dose 10 MG; Start 01/27/19 at 16:30 Hydrochlorothiazide (Hydrochlorothiazide) 25 mg DAILY PO Last administered on 01/31/19 09:20; Admin Dose 25 MG; Start 01/28/19 at 09:00 Acetaminophen/ Hydrocodone Bitart ([place] (5/325)) 1 tab Q4H PRN PO MODERATE PAIN LEVEL 4-6 Last administered on 01/28/19 21:09; Admin Dose 1 TAB; Start 01/27/19 at 16:30 Acetaminophen/ Hydrocodone Bitart ([place] (5/325)) 2 tab Q4H PRN PO PAIN LEVEL 7-10 Last administered on 01/31/19 20:12; Admin Dose 2 TAB; Start 01/27/19 at 16:30 Rifampin (Rifampin) 600 mg DAILY PO Last administered on 01/31/19 09:19; Admin Dose 600 MG; Start 01/29/19 at 09:00; Stop 02/12/19 at 10:00 Cefazolin Sodium 50 ml @ 100 mls/hr Q8 IVPB Last administered on 01/31/19 14:24; Admin Dose 100 MLS/HR; Start 01/28/19 at 22:00; Stop 02/12/19 at 22:00 Collagenase (Santyl) 1 applic BID TOP Last administered on 01/31/19 09:20; Admin Dose 1 APPLIC; Start 01/29/19 at 22:00 ENIO ONEILL Jan 31, 2019 20:37
--- NOTE | 2019-01-31 20:47 | PN ---
Date/Time of Note Date/Time of Note DATE: 01/31/19 TIME: 20:46 Assessment/Plan VTE Prophylaxis Risk score (from Ns)>0 risk: 1 SCD applied (from [facility] [place] Yes Pharmacological prophylaxis: NA/contraindicated Pharm contraindication: bleeding Lines/Catheters IV [facility]ter Type (from [facility] port a cath Urinary Cath still in place: No Assessment/Plan Hospital Course Patient still has significant redness and pain at incision site, continue IV antibiotics per surgical recommendation. Continue [place] for pain, continue current wound care. Patient received blood transfusion on admission, hemoglobin stable at 10. Assessment/Plan -Right chest cellulitis, wound culture is positive for staph aureus, patient is currently on IV Ancef and rifampin. Dr. Lafleur is following in infection disease consultation. -Status post of resection of R chest wall tumor on January [address] Cristina -Right breast cancer stage IV, s/p right radical mastectomy and chemotherapy. Dr. Cristina is following in surgical consultation. -Anemia most likely secondary to chemotherapy and malignancy. Status post blood transfusion, continue to monitor H&H. Further recommendations based on clinical course. Plan of care discussed with Dr. Werner. Result Diagram: 01/31/19 0450 01/29/19 0502 Results 24hrs Laboratory Tests Test 01/31/19 04:50 White Blood Count 7.5 # Red Blood Count 3.57 L Hemoglobin 10.0 L Hematocrit 31.0 L Mean Corpuscular Volume 86.8 Mean Corpuscular Hemoglobin 28.0 L Mean Corpuscular Hemoglobin Concent 32.3 Red Cell Distribution Width 19.8 H Platelet Count 316 Mean Platelet Volume 9.6 Immature Granulocytes % 0.700 H Neutrophils % 66.9 Lymphocytes % 19.7 Monocytes % 11.6 H Eosinophils % 0.7 Basophils % 0.4 Nucleated Red Blood Cells % 0.0 Immature Granulocytes # 0.050 H Neutrophils # 5.1 Lymphocytes # 1.5 Monocytes # 0.9 Eosinophils # 0.1 Basophils # 0.0 Nucleated Red Blood Cells # 0.0 Exam/Review of Systems Exam Vitals Vital Signs Date Temp Pulse Resp B/P (MAP) Pulse Ox O2 O2 Flow FiO2 Time Delivery Rate 01/31/19 98.3 72 16 133/88 98 14:30 (103) 01/30/19 Room Air 14:02 Intake and Output 01/30/19 01/30/19 01/31/19 1515:00 23:00 07:00 IntakeIntake Total 320 ml 100 ml 50 ml BalanceBalance 320 ml 100 ml 50 ml Exam Constitutional: alert, oriented Respiratory: clear to auscultation Cardiovascular: nl pulses Gastrointestinal: soft, non-tender Musculoskeletal: nl extremities to inspection Extremities: normal pulses Neurological: nl mental status Skin: other (Right chest surgical incision with erythema and tenderness, right chest lateral wounds from prior NORMA) Results Results 24hrs Laboratory Tests Test 01/31/19 04:50 White Blood Count 7.5 # Red Blood Count 3.57 L Hemoglobin 10.0 L Hematocrit 31.0 L Mean Corpuscular Volume 86.8 Mean Corpuscular Hemoglobin 28.0 L Mean Corpuscular Hemoglobin Concent 32.3 Red Cell Distribution Width 19.8 H Platelet Count 316 Mean Platelet Volume 9.6 Immature Granulocytes % 0.700 H Neutrophils % 66.9 Lymphocytes % 19.7 Monocytes % 11.6 H Eosinophils % 0.7 Basophils % 0.4 Nucleated Red Blood Cells % 0.0 Immature Granulocytes # 0.050 H Neutrophils # 5.1 Lymphocytes # 1.5 Monocytes # 0.9 Eosinophils # 0.1 Basophils # 0.0 Nucleated Red Blood Cells # 0.0 Medications Medication Current Medications IV Flush (NS 3 ml) 3 ml PER PROTOCOL IV ; Start 01/27/19 at 01:00 Acetaminophen (Tylenol Tab) 650 mg Q6H PRN PO .PAIN 1-3 OR TEMP; Start 01/27/19 at 01:00 Albuterol/ Ipratropium (Duoneb) 3 ml Q2H RESP THERAPY PRN HHN SHORTNESS OF BREATH; Start 01/27/19 at 01:00 Benazepril HCl (Lotensin) 10 mg DAILY PO Last administered on 01/31/19at 09:20; Admin Dose 10 MG; Start 01/27/19 at 09:00 Ferrous Sulfate (Ferrous Sulfate (Ec)) 325 mg BID PO Last administered on 01/31/19at 09:20; Admin Dose 325 MG; Start 01/27/19 at 09:00 Morphine Sulfate (morphine) 2 mg Q4H PRN IV SEVERE PAIN LEVEL 7-10 Last administered on 01/31/19at 16:42; Admin Dose 2 MG; Start 01/27/19 at 05:00 Docusate Sodium (Colace) 100 mg BID PO Last administered on 01/31/19 09:20; Admin Dose 100 MG; Start 01/27/19 at 21:00 Metoclopramide HCl (Reglan) 10 mg Q6H PRN IV NAUSEA AND/OR VOMITING Last administered on 01/29/19 19:43; Admin Dose 10 MG; Start 01/27/19 at 16:30 Hydrochlorothiazide (Hydrochlorothiazide) 25 mg DAILY PO Last administered on 01/31/19 09:20; Admin Dose 25 MG; Start 01/28/19 at 09:00 Acetaminophen/ Hydrocodone Bitart ([place] (5/325)) 1 tab Q4H PRN PO MODERATE PAIN LEVEL 4-6 Last administered on 01/28/19 21:09; Admin Dose 1 TAB; Start 01/27/19 at 16:30 Acetaminophen/ Hydrocodone Bitart ([place] (5/325)) 2 tab Q4H PRN PO PAIN LEVEL 7-10 Last administered on 01/31/19 20:12; Admin Dose 2 TAB; Start 01/27/19 at 16:30 Rifampin (Rifampin) 600 mg DAILY PO Last administered on 01/31/19 09:19; Admin Dose 600 MG; Start 01/29/19 at 09:00; Stop 02/12/19 at 10:00 Cefazolin Sodium 50 ml @ 100 mls/hr Q8 IVPB Last administered on 01/31/19 14:24; Admin Dose 100 MLS/HR; Start 01/28/19 at 22:00; Stop 02/12/19 at 22:00 Collagenase (Santyl) 1 applic BID TOP Last administered on 01/31/19 09:20; Admin Dose 1 APPLIC; Start 01/29/19 at 22:00 ENIO ONEILL Jan 31, 2019 20:47
[2019-02-01 02:00] VITALS: BP 148/88; PULSE 74; RESP 17
[2019-02-01] MEDS: HYDROCODONE/APAP (5/325) TAB PO PRN ×5 (02:38→20:26)
[2019-02-01] MEDS: CEFAZOLIN 1 GM/50 ML (PMX) 50 ML IVPB SCH ×3 (05:32→21:27)
[2019-02-01 08:05] VITALS: BP 120/82; PULSE 71; RESP 16
[2019-02-01] MEDS: FERROUS SULFATE (EC) 325 MG TAB PO SCH ×2 (08:42→20:27)
[2019-02-01] MEDS: RIFAMPIN 300 MG CAP PO SCH (08:42)
[2019-02-01] MEDS: HYDROCHLOROTHIAZIDE 25 MG TAB PO SCH (08:42)
[2019-02-01] MEDS: COLLAGENASE 5 GM (UD JAR) TOP SCH ×2 (08:42→20:27)
[2019-02-01] MEDS: BENAZEPRIL 10 MG TAB PO SCH (08:42)
[2019-02-01] MEDS: DOCUSATE SODIUM 100 MG CAP PO SCH ×2 (08:42→20:26)
--- NOTE | 2019-02-01 10:34 | PN ---
Date/Time of Note Date/Time of Note DATE: 02/01/19 TIME: 10:32 Assessment/Plan VTE Prophylaxis Risk score (from Ns)>0 risk: 5 SCD applied (from Ns): Yes Pharmacological prophylaxis: NA/contraindicated Pharm contraindication: surgical contra Lines/Catheters IV [facility]ter Type (from [facility] port-a-cath Urinary Cath still in place: No Assessment/Plan Hospital Course Patient patient complains of significant pain currently on [place] and morphine as needed for breakthrough pain, continue IV antibiotics per surgical recommendation. Patient can be discharged after cleared by surgery, all prescriptions on the chart. Assessment/Plan -Right chest cellulitis, wound culture is positive for staph aureus, patient is currently on IV Ancef and rifampin. Dr. Lafleur is following in infection disease consultation. -Status post of resection of R chest wall tumor on January [address] Cristina -Right breast cancer stage IV, s/p right radical mastectomy and chemotherapy. Dr. Cristina is following in surgical consultation. -Anemia most likely secondary to chemotherapy and malignancy. Status post blood transfusion, continue to monitor H&H. Further recommendations based on clinical course. Plan of care discussed with Dr. Werner. Result Diagram: 02/01/19 0647 02/01/19 0647 Results 24hrs Laboratory Tests Test 02/01/19 06:47 White Blood Count 8.5 Red Blood Count 3.43 L Hemoglobin 9.7 L Hematocrit 30.2 L Mean Corpuscular Volume 88.0 Mean Corpuscular Hemoglobin 28.3 L Mean Corpuscular Hemoglobin Concent 32.1 Red Cell Distribution Width 19.5 H Platelet Count 324 Mean Platelet Volume 9.5 Immature Granulocytes % 0.600 H Neutrophils % 70.8 Lymphocytes % 16.5 Monocytes % 11.1 H Eosinophils % 0.8 Basophils % 0.2 Nucleated Red Blood Cells % 0.0 Immature Granulocytes # 0.050 H Neutrophils # 6.0 Lymphocytes # 1.4 Monocytes # 0.9 Eosinophils # 0.1 Basophils # 0.0 Nucleated Red Blood Cells # 0.0 Sodium Level 141 Potassium Level 3.6 Chloride Level 103 Carbon Dioxide Level 31 Anion Gap 7 Blood Urea Nitrogen 10 Creatinine 0.55 Est Glomerular Filtrat Rate mL/min > 60 Glucose Level 109 Calcium Level 9.2 Exam/Review of Systems Exam Vitals Vital Signs Date Temp Pulse Resp B/P (MAP) Pulse Ox O2 O2 Flow FiO2 Time Delivery Rate 02/01/19 97.8 71 16 120/82 97 08:05 (95) 01/30/19 Room Air 14:02 Intake and Output 01/31/19 01/31/19 02/01/19 1515:00 23:00 07:00 IntakeIntake Total 50 ml 1550 ml 50 ml BalanceBalance 50 ml 1550 ml 50 ml Exam Constitutional: alert, oriented Respiratory: clear to auscultation Cardiovascular: nl pulses Gastrointestinal: soft, non-tender Musculoskeletal: nl extremities to inspection Extremities: normal pulses Neurological: nl mental status Skin: other (Right chest surgical incision with erythema and tenderness, right chest lateral wounds from prior NORMA) Results Results 24hrs Laboratory Tests Test 02/01/19 06:47 White Blood Count 8.5 Red Blood Count 3.43 L Hemoglobin 9.7 L Hematocrit 30.2 L Mean Corpuscular Volume 88.0 Mean Corpuscular Hemoglobin 28.3 L Mean Corpuscular Hemoglobin Concent 32.1 Red Cell Distribution Width 19.5 H Platelet Count 324 Mean Platelet Volume 9.5 Immature Granulocytes % 0.600 H Neutrophils % 70.8 Lymphocytes % 16.5 Monocytes % 11.1 H Eosinophils % 0.8 Basophils % 0.2 Nucleated Red Blood Cells % 0.0 Immature Granulocytes # 0.050 H Neutrophils # 6.0 Lymphocytes # 1.4 Monocytes # 0.9 Eosinophils # 0.1 Basophils # 0.0 Nucleated Red Blood Cells # 0.0 Sodium Level 141 Potassium Level 3.6 Chloride Level 103 Carbon Dioxide Level 31 Anion Gap 7 Blood Urea Nitrogen 10 Creatinine 0.55 Est Glomerular Filtrat Rate mL/min > 60 Glucose Level 109 Calcium Level 9.2 Medications Medication Current Medications IV Flush (NS 3 ml) 3 ml PER PROTOCOL IV ; Start 01/27/19 at 01:00 Acetaminophen (Tylenol Tab) 650 mg Q6H PRN PO .PAIN 1-3 OR TEMP; Start 01/27/19 at 01:00 Albuterol/ Ipratropium (Duoneb) 3 ml Q2H RESP THERAPY PRN HHN SHORTNESS OF BREATH; Start 01/27/19 at 01:00 Benazepril HCl (Lotensin) 10 mg DAILY PO Last administered on 02/01/19at 08:42; Admin Dose 10 MG; Start 01/27/19 at 09:00 Ferrous Sulfate (Ferrous Sulfate (Ec)) 325 mg BID PO Last administered on 02/01/19 08:42; Admin Dose 325 MG; Start 01/27/19 at 09:00 Morphine Sulfate (morphine) 2 mg Q4H PRN IV SEVERE PAIN LEVEL 7-10 Last administered on 01/31/19 16:42; Admin Dose 2 MG; Start 01/27/19 at 05:00 Docusate Sodium (Colace) 100 mg BID PO Last administered on 02/01/19 08:42; Admin Dose 100 MG; Start 01/27/19 at 21:00 Metoclopramide HCl (Reglan) 10 mg Q6H PRN IV NAUSEA AND/OR VOMITING Last administered on 01/29/19 19:43; Admin Dose 10 MG; Start 01/27/19 at 16:30 Hydrochlorothiazide (Hydrochlorothiazide) 25 mg DAILY PO Last administered on 02/01/19 08:42; Admin Dose 25 MG; Start 01/28/19 at 09:00 Acetaminophen/ Hydrocodone Bitart ([place] (5/325)) 1 tab Q4H PRN PO MODERATE PAIN LEVEL 4-6 Last administered on 01/28/19 21:09; Admin Dose 1 TAB; Start 01/27/19 at 16:30 Acetaminophen/ Hydrocodone Bitart ([place] (5/325)) 2 tab Q4H PRN PO PAIN LEVEL 7-10 Last administered on 02/01/19 06:48; Admin Dose 2 TAB; Start 01/27/19 at 16:30 Rifampin (Rifampin) 600 mg DAILY PO Last administered on 02/01/19 08:42; Admin Dose 600 MG; Start 01/29/19 at 09:00; Stop 02/12/19 at 10:00 Cefazolin Sodium 50 ml @ 100 mls/hr Q8 IVPB Last administered on 02/01/19 05:32; Admin Dose 100 MLS/HR; Start 01/28/19 at 22:00; Stop 02/12/19 at 22:00 Collagenase (Santyl) 1 applic BID TOP Last administered on 02/01/19 08:42; Admin Dose 1 APPLIC; Start 01/29/19 at 22:00 ENIO ONEILL Feb 01, 2019 10:34
--- NOTE | 2019-02-01 11:50 | CONS ---
Assessment/Plan Assessment/Plan Hospital Course (Demo Recall) No events over night Wound culture grew staph aureus Antimicrobials: Ancef and rifampin Physical examination: Well-developed well-nourished middle-aged woman who is alert in no distress. Head atraumatic normocephalic. Neck is supple. Chest rise symmetrical breath sounds clear. Patient has right-sided incision with ava clean dry and intact there is a wound with some drainage below it erythema is getting better. Heart: S1-S2. Abdomen soft bowel sounds present. Extremities without cyanosis. Assessment: 1. Right breast wound site abscess and cellulitis, resolving 2. Status post operative radical mastectomy and chemotherapy for right breast 3. Hypertension 4. Breast cancer Plan: Patient remains stable, continue management per surgery, anticipate discharge home oral Keflex when cleared by surgery Consultation Date/Type/Reason Admit Date/Time Jan 26, 2019 at 20:47 Initial Consult Date Type of Consult id Date/Time of Note DATE: 02/01/19 TIME: 11:47 Exam/Review of Systems Exam Vitals Vital Signs Date Temp Pulse Resp B/P (MAP) Pulse Ox O2 O2 Flow FiO2 Time Delivery Rate 02/01/19 97.8 71 16 120/82 97 08:05 (95) 01/30/19 Room Air 14:02 Intake and Output 01/31/19 01/31/19 02/01/19 1515:00 23:00 07:00 IntakeIntake Total 50 ml 1550 ml 50 ml BalanceBalance 50 ml 1550 ml 50 ml Results Result Diagram: 02/01/19 0647 02/01/19 0647 Results 24hrs Laboratory Tests Test 02/01/19 06:47 White Blood Count 8.5 Red Blood Count 3.43 L Hemoglobin 9.7 L Hematocrit 30.2 L Mean Corpuscular Volume 88.0 Mean Corpuscular Hemoglobin 28.3 L Mean Corpuscular Hemoglobin Concent 32.1 Red Cell Distribution Width 19.5 H Platelet Count 324 Mean Platelet Volume 9.5 Immature Granulocytes % 0.600 H Neutrophils % 70.8 Lymphocytes % 16.5 Monocytes % 11.1 H Eosinophils % 0.8 Basophils % 0.2 Nucleated Red Blood Cells % 0.0 Immature Granulocytes # 0.050 H Neutrophils # 6.0 Lymphocytes # 1.4 Monocytes # 0.9 Eosinophils # 0.1 Basophils # 0.0 Nucleated Red Blood Cells # 0.0 Sodium Level 141 Potassium Level 3.6 Chloride Level 103 Carbon Dioxide Level 31 Anion Gap 7 Blood Urea Nitrogen 10 Creatinine 0.55 Est Glomerular Filtrat Rate mL/min > 60 Glucose Level 109 Calcium Level 9.2 Medications Medication Current Medications IV Flush (NS 3 ml) 3 ml PER PROTOCOL IV ; Start 01/27/19 at 01:00 Acetaminophen (Tylenol Tab) 650 mg Q6H PRN PO .PAIN 1-3 OR TEMP; Start 01/27/19 at 01:00 Albuterol/ Ipratropium (Duoneb) 3 ml Q2H RESP THERAPY PRN HHN SHORTNESS OF BREATH; Start 01/27/19 at 01:00 Benazepril HCl (Lotensin) 10 mg DAILY PO Last administered on 02/01/19 08:42; Admin Dose 10 MG; Start 01/27/19 at 09:00 Ferrous Sulfate (Ferrous Sulfate (Ec)) 325 mg BID PO Last administered on 02/01/19 08:42; Admin Dose 325 MG; Start 01/27/19 at 09:00 Morphine Sulfate (morphine) 2 mg Q4H PRN IV SEVERE PAIN LEVEL 7-10 Last administered on 01/31/19 16:42; Admin Dose 2 MG; Start 01/27/19 at 05:00 Docusate Sodium (Colace) 100 mg BID PO Last administered on 02/01/19 08:42; Admin Dose 100 MG; Start 01/27/19 at 21:00 Metoclopramide HCl (Reglan) 10 mg Q6H PRN IV NAUSEA AND/OR VOMITING Last administered on 01/29/19 19:43; Admin Dose 10 MG; Start 01/27/19 at 16:30 Hydrochlorothiazide (Hydrochlorothiazide) 25 mg DAILY PO Last administered on 02/01/19 08:42; Admin Dose 25 MG; Start 01/28/19 at 09:00 Acetaminophen/ Hydrocodone Bitart ([place] (5/325)) 1 tab Q4H PRN PO MODERATE PAIN LEVEL 4-6 Last administered on 01/28/19 21:09; Admin Dose 1 TAB; Start 01/27/19 at 16:30 Acetaminophen/ Hydrocodone Bitart ([place] (5/325)) 2 tab Q4H PRN PO PAIN LEVEL 7-10 Last administered on 3/20/19at 10:46; Admin Dose 2 TAB; Start 01/27/19 at 16:30 Rifampin (Rifampin) 600 mg DAILY PO Last administered on 02/01/19at 08:42; Admin Dose 600 MG; Start 01/29/19 at 09:00; Stop 02/12/19 at 10:00 Cefazolin Sodium 50 ml @ 100 mls/hr Q8 IVPB Last administered on 02/01/19at 05:32; Admin Dose 100 MLS/HR; Start 01/28/19 at 22:00; Stop 02/12/19 at 22:00 Collagenase (Santyl) 1 applic BID TOP Last administered on 02/01/19at 08:42; Admin Dose 1 APPLIC; Start 01/29/19 at 22:00 DIMA FAY NP Feb 01, 2019 11:50
[2019-02-01] MEDS: morphine 2 MG INJ IV PRN (14:34)
[2019-02-01 14:49] VITALS: BP 131/78; PULSE 73; RESP 18
--- NOTE | 2019-02-01 16:31 | PN ---
DATE: 02/01/2019 SUBJECTIVE: Feels better to the shower. Continued to have IV antibiotics. Tolerating diet. OBJECTIVE: VITAL SIGNS: Stable, temperature maximum 97.8, heart rate 74, respirations 16, blood pressure 120/82 , saturation 97% room air. LABORATORY DATA: WBC 8500 with 70% segmented, hemoglobin 9.7, hematocrit 30.2. PHYSICAL EXAMINATION: HEART: Regular. LUNGS: Clear. CHEST WALL: Cellulitis has improved about 70% to 80%. All the ava were removed. The inflammati on and induration has slightly decreased, mainly limited to the anterolateral aspect of the incision line. PLAN: I will remove part or most of the sutures tomorrow and hopefully we can discharge the patient tomorrow with oral antibiotics. Dictated By: SHERI FAIRBANKS MD PS/NTS Conf#: [id number] DID#: [id number] CC: CAROLYN GOLDSTEIN; DRERICK IRENE MD; JENNY HOPKINS MD;*End*
[2019-02-01 19:32] VITALS: BP 132/78; PULSE 78; RESP 20
[2019-02-01] MEDS: OXYCODONE/ACETAMINOPHEN (10/325) TAB PO PRN (21:37)
[2019-02-02] MEDS: OXYCODONE/ACETAMINOPHEN (10/325) TAB PO PRN (01:37)
[2019-02-02 01:58] VITALS: BP 122/74; PULSE 77; RESP 17
[2019-02-02] MEDS: HYDROmorphONE 4 MG TAB PO PRN ×4 (05:00→17:36)
[2019-02-02] MEDS: CEFAZOLIN 1 GM/50 ML (PMX) 50 ML IVPB SCH ×2 (05:00→14:26)
[2019-02-02 07:25] VITALS: BP 136/97; PULSE 78; RESP 16
[2019-02-02] MEDS: HYDROCHLOROTHIAZIDE 25 MG TAB PO SCH (09:11)
[2019-02-02] MEDS: RIFAMPIN 300 MG CAP PO SCH (09:11)
[2019-02-02] MEDS: FERROUS SULFATE (EC) 325 MG TAB PO SCH (09:11)
[2019-02-02] MEDS: DOCUSATE SODIUM 100 MG CAP PO SCH (09:11)
[2019-02-02] MEDS: BENAZEPRIL 10 MG TAB PO SCH (09:11)
[2019-02-02] MEDS: COLLAGENASE 5 GM (UD JAR) TOP SCH (09:20)
--- NOTE | 2019-02-02 13:58 | CONS ---
Assessment/Plan Assessment/Plan Hospital Course (Demo Recall) No events over night patient is alert, eating lunch, no fevers overnight, ava were removed Wound culture grew ALEXANDER Antimicrobials: Ancef and rifampin Physical examination: Well-developed well-nourished middle-aged woman who is alert in no distress. Head atraumatic normocephalic. Neck is supple. Chest rise symmetrical breath sounds clear. Patient has right-sided incision with sta ples clean dry and intact there is a wound with some drainage below it erythema is getting better. Heart: S1-S2. Abdomen soft bowel sounds present. Extremities without cyanosis. Assessment: 1. Right breast wound site abscess and cellulitis, resolving 2. Status post operative radical mastectomy and chemotherapy for right breast 3. Hypertension 4. Breast cancer Plan: Patient remains stable, pending discharge home oral Keflex Consultation Date/Type/Reason Admit Date/Time Jan 26, 2019 at 20:47 Initial Consult Date Type of Consult id Date/Time of Note DATE: 02/02/19 TIME: 13:57 Exam/Review of Systems Exam Vitals Vital Signs Date Temp Pulse Resp B/P (MAP) Pulse Ox O2 O2 Flow FiO2 Time Delivery Rate 02/02/19 97.8 78 16 136/97 97 Room Air 07:25 (110) Intake and Output 02/01/19 02/01/19 02/02/19 1515:00 23:00 07:00 IntakeIntake Total 1100 ml 50 ml BalanceBalance 1100 ml 50 ml Results Result Diagram: 02/01/19 0647 02/01/19 0647 Medications Medication Current Medications IV Flush (NS 3 ml) 3 ml PER PROTOCOL IV ; Start 01/27/19 at 01:00 Acetaminophen (Tylenol Tab) 650 mg Q6H PRN PO .PAIN 1-3 OR TEMP; Start 01/27/19 at 01:00 Albuterol/ Ipratropium (Duoneb) 3 ml Q2H RESP THERAPY PRN HHN SHORTNESS OF BREATH; Start 01/27/19 at 01:00 Benazepril HCl (Lotensin) 10 mg DAILY PO Last administered on 02/02/19at 09:11; Admin Dose 10 MG; Start 01/27/19 at 09:00 Ferrous Sulfate (Ferrous Sulfate (Ec)) 325 mg BID PO Last administered on 02/02/19at 09:11; Admin Dose 325 MG; Start 01/27/19 at 09:00 Docusate Sodium (Colace) 100 mg BID PO Last administered on 02/02/19 09:11; Admin Dose 100 MG; Start 01/27/19 at 21:00 Metoclopramide HCl (Reglan) 10 mg Q6H PRN IV NAUSEA AND/OR VOMITING Last administered on 01/29/19 19:43; Admin Dose 10 MG; Start 01/27/19 at 16:30 Hydrochlorothiazide (Hydrochlorothiazide) 25 mg DAILY PO Last administered on 02/02/19 09:11; Admin Dose 25 MG; Start 01/28/19 at 09:00 Rifampin (Rifampin) 600 mg DAILY PO Last administered on 02/02/19 09:11; Admin Dose 600 MG; Start 01/29/19 at 09:00; Stop 02/12/19 at 10:00 Cefazolin Sodium 50 ml @ 100 mls/hr Q8 IVPB Last administered on 02/02/19 05:00; Admin Dose 100 MLS/HR; Start 01/28/19 at 22:00; Stop 02/12/19 at 22:00 Collagenase (Santyl) 1 applic BID TOP Last administered on 02/02/19 09:20; Admin Dose 1 APPLIC; Start 01/29/19 at 22:00 Hydromorphone HCl (Dilaudid) 4 mg Q4H PRN PO SEVERE PAIN LEVEL 7-10 Last administered on 02/02/19 13:09; Admin Dose 4 MG; Start 02/02/19 at 04:00 DIMA FYA NP Feb 02, 2019 13:58
[2019-02-02 14:09] VITALS: BP 140/88; PULSE 92; RESP 16
--- NOTE | 2019-02-02 17:47 | PN ---
DATE: 02/02/2019 SUBJECTIVE: No specific complaint except continues to complain of some kind of knee pain around the chest wall mainly on the lateral and posterior side on the right side. Has been out of bed, walking around. Eating is okay. Bowel movement is okay. PHYSICAL EXAMINATION: VITAL SIGNS: Temperature maximum 98.3, heart rate 78, respirations 16, blood pressure 136/90, satura tion 97% on room air. LABORATORY DATA: No new labs today. IMPRESSION AND PLAN: As was mentioned yesterday, all the ava were removed and today, I removed t he rest of the nylon sutures. Wound anteriorly is very clean laterally and anterolaterally. Celluli tis is much better but still there is a little bit of inflammation and induration. The patient from surgical point of view can be discharged home to get completion antibiotics she is supposed to be 1 m ore week of Keflex 500 mg p.o. q.6 hours at home. The patient is also to follow with Dr. Cristina in hi s office next week or the week after that and also continue with her chemotherapies. Instructions al l have been given to the patient and the patient stated that she knows what is the future plan is goi ng to be. I actually have talked with the patient's nurse practitioner, Saul Saldana to kindly g svetlana the prescription for Keflex. Dictated By: SHERI FAIRBANKS MD PS/NTS Conf#: [id number] DID#: [id number] CC: DERRICK IRENE MD; JENNY CRISTINA MD; CAROLYN GOLDSTEIN;*End*
[2019-02-02] MEDS ORDERED: HEPARIN (100 UNITS/ML) 5 ML SYG CATHETER ONE (19:00)
--- NOTE | 2019-02-03 03:47 | DS ---
DATE OF ADMISSION: 01/26/2019 DATE OF DISCHARGE: 02/02/2019 DISCHARGE DIAGNOSES: 1. Abscess and cellulitis of the right breast wound site. 2. Status post radical mastectomy and chemotherapy for right breast. 3. Anemia due to chemotherapy and malignancy. 4. Hypertension. DISCHARGE MEDICATIONS: The patient is to resume home medication as before. In addition, the patient will be given prescription for: 1. Keflex 500 q.6 hours for 7 days. 2. Michael 10/325 q.4 p.r.n. #60. REASON FOR ADMISSION: The patient is a 53-year-old female with stage IV right breast cancer with lung metastasis, status post right radical mastectomy and chemotherapy. 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 Cristina. The patient is being followed by Dr. Carrillo from oncology standpoint. The patient came to ER with right chest cellulitis. The patient was seen by Dr. Billy from infectious disease standpoint and his recommendations were followed. Wound culture grew Staphylococcus aureus sensitive to cefazolin. Prior to that, the patient was treated with IV cefazolin and oral rifampin. The patient was also seen by Dr. Patel from surgical standpoint. On the day of discharge, the patient is feeling better. The patient's pain seems to be controlled with Michael 10/325 mg 2 tablets at 1 time every 4 hours as needed. PHYSICAL EXAMINATION: VITAL SIGNS: Stable. Blood pressure 136/90, pulse 78, respirations 16, temperature 98.3. NECK: No mass. CHEST: Fairly clear. CARDIOVASCULAR: S1, S2 normal. ABDOMEN: Soft, nondistended, nontender. EXTREMITIES: No edema. NEUROLOGIC: The patient is awake, alert, fairly oriented with no gross deficit. DIET: A 2-gram sodium cardiac diet. FOLLOWUP: Follow up with Dr. Cristina and PMD as an outpatient. CONDITION ON DISCHARGE: Stable. Dictated By: DERRICK RAYMOND/NTS Conf#: [id number] DID#: [id number] CC: CAROLYN GOLDSTEIN; JENNY CRISTINA MD;*EndCC* [facility]
== END 2019-02-02 19:00 | disposition home health service (06) | DRG 863 ==
LOC: PP2 20:47 → 6WM 01-28 08:09 → PP2 01-29 14:40
PROVIDERS: ADMIT Hospitalist; ATTEND Internal Medicine
PROC: 30233N1 Transfusion of Nonautologous Red Blood Cells into Peripheral Vein, Percutaneous Approach (ICD-10-PCS; principal; 2019-01-28)
DX: T81.41XA Infection following a procedure, superficial incisional surgical site, initial encounter (principal); L03.313 Cellulitis of chest wall; L02.213 Cutaneous abscess of chest wall; C50.911 Malignant neoplasm of unspecified site of right female breast; D64.81 Anemia due to antineoplastic chemotherapy; D63.0 Anemia in neoplastic disease; B95.61 Methicillin susceptible Staphylococcus aureus infection as the cause of diseases classified elsewhere; E87.6 Hypokalemia; I10 Essential (primary) hypertension; E66.9 Obesity, unspecified; Z68.32 Body mass index [BMI] 32.0-32.9, adult; Y83.8 Other surgical procedures as the cause of abnormal reaction of the patient, or of later complication, without mention of misadventure at the time of the procedure; Y92.019 Unspecified place in single-family (private) house as the place of occurrence of the external cause; Z90.11 Acquired absence of right breast and nipple
CPT/HCPCS: 36430; 80048; 80053; 82565; 83735; 84100; 84520; 85025; 86850; 86900; 86901; 86920; 87070; 87081; 93971; J0690; J0692; J1170; J1642; J2270; J2765; J3370; J7050; P9016

== ENCOUNTER 2019-03-22 10:29 | Inpatient (IN) | payer OTHER ==
[~2019-03-22] VITALS: Ht 152.4 cm; Wt 84.4 kg
[~2019-03-22 10:29] MED LIST changes: -ACET1TAB40 ORAL; +CEPH250S33 PO; +HYDR-3601 PO; +RIF120L PO; +SAN30GM TOP
[2019-03-22] MEDS ORDERED: SOD CHLORIDE 0.9% 500 ML IV STA (10:54)
--- NOTE | 2019-03-22 10:54 | ERD ---
ER Documentation Chief Complaint Chief Complaint LAST CHEMO 3 WEEKS AGO, SEND BY PMD DUE LOW HGB, FEELS WEAK HPI This is a 53-year-old woman with a history of invasive metastatic breast carcinoma presenting with generalized weakness and dyspnea on exertion. She was referred here by matte cutter for anemia, blood was drawn 2 days ago and she was told she was anemic today. Patient had chemotherapy about 3 weeks ago and has had 7 prior sessions (once every 3 weeks) but could not undergo chemotherapy today due to her anemia. She denies fevers or chills, no loss of consciousness, no chest pain or shortness of breath, no blood per rectum or melena ROS All systems reviewed and are negative except as per history of present illness. Medications Home Meds Reported Medications Benazepril Hcl* (Benazepril Hcl*) 20 Mg Tablet, 1 TAB ORAL DAILY 03/22/19 Cholecalciferol (Vitamin D3) (Vitamin D-3) 2,000 Unit Tablet, 1 TAB ORAL DAILY 03/22/19 Hydrocodone/Acetaminophen (Hydrocodone-Acetamin 10-325 mg) 1 Each Tablet, 1 TAB ORAL Q6 PRN for PAIN LEVEL 8-10 03/22/19 Acetaminophen with Codeine (Acetaminophen-Cod #3 Tablet) 1 Each Tablet, 1 TAB ORAL Q6 PRN for PAIN LEVEL 6-10 03/22/19 Hydrochlorothiazide* (Hydrochlorothiazide*) 25 Mg Tab, 25 MG PO DAILY, #30 TAB 09/02/18 Discontinued Reported Medications Niraparib Tosylate ([place]ej[place]) 100 Mg Capsule, 100 MG PO HS, CAP 01/12/19 Benazepril Hcl* (Benazepril Hcl*) 10 Mg Tablet, 10 MG PO DAILY, #30 TAB 04/29/18 Discontinued Scripts Rifampin* (Rifampin* Pediatric IV Syringe) 10 Mg/Ml Susp, 600 MG PO DAILY for 14 Days Prov:ENIO ONEILL 01/30/19 Cephalexin* (Cephalexin* Susp) 250 Mg/5 Ml Susp.recon, 500 MG PO Q8 for 14 Days, #1 BOTTLE Prov:ENIO ONEILL 01/30/19 Collagenase* (Santyl*) 30 Gm Oint..gm., 1 APPLIC TOP BID for 14 Days Prov:ENIO ONEILL 01/30/19 Hydrocodone Bit-Acetaminophen (Hydrocodone Bit-APAP) 5-325MG Tablet, 1 TAB PO Q4H PRN for MODERATE PAIN LEVEL 4-6, #30 TAB Prov:ENIO ONEILL 01/30/19 Ferrous Sulfate* (Ferrous Sulfate*) 325 Mg Tabec, 325 MG PO BID, #60 TAB Prov:DERRICK IRENE MD 01/15/19 Allergies Allergies: Coded Allergies: oxycodone (Verified Allergy, Severe, 03/22/19) ondansetron (Verified Allergy, Unknown, RASH, 01/13/19) hydromorphone (Verified Adverse Reaction, Severe, N/V, 01/13/19) PMhx/Soc Fungating right chest wall abscess cellulitis, history of stage IV right breast carcinoma with lung metastasis status post radical mastectomy, chemotherapy, anemia, hypertension History of Surgery: Yes (01/31 Lumpectomy ) Anesthesia Reaction: No Hx Neurological Disorder: No Hx Respiratory Disorders: Yes (Asthma, hx of Bronchitis) Hx Cardiac Disorders: Yes (HTN) Hx Psychiatric Problems: No Hx Miscellaneous Medical Probl: Yes (1988 Appendectomy, 2004&2012 ABD tumor removal, Lumpectomy x2 (01/30 & 01/31)) Hx Alcohol Use: No Hx Substance Use: No Hx Tobacco Use: No FmHx Family History: No diabetes Physical Exam Vitals Vital Signs Date Temp Pulse Resp B/P (MAP) Pulse Ox O2 O2 Flow FiO2 Time Delivery Rate 03/22/19 99.0 97 16 117/74 100 Room Air 11:44 (88) 03/22/19 98.8 115 18 134/61 99 10:33 (85) Physical Exam Const: No acute distress, afebrile Head: Atraumatic Eyes: Pale conjunctive a ENT: Normal External Ears, Nose and Mouth. Neck: Full range of motion. No meningismus. Resp: Clear to auscultation bilaterally Cardio: Regular rate and rhythm, no murmurs Abd: Soft, non tender, non distended. Skin: No petechiae or rashes Back: No midline or flank tenderness Ext: No cyanosis, +1 pitting edema in the lower extremities bilaterally Neuro: Awake and alert x3, no focal deficits or facial asymmetry Psych: Normal Mood and Affect Result Diagram: 03/22/19 1126 03/22/19 1126 Results 24 hrs Laboratory Tests Test 03/22/19 11:26 White Blood Count 5.4 10^3/ul Red Blood Count 1.52 10^6/ul Hemoglobin 5.0 g/dl Hematocrit 15.0 % Mean Corpuscular Volume 98.7 fl Mean Corpuscular Hemoglobin 32.9 pg Mean Corpuscular Hemoglobin Concent 33.3 g/dl Red Cell Distribution Width 19.6 % Platelet Count 131 10^3/UL Mean Platelet Volume 10.2 fl Immature Granulocytes % 0.400 % Neutrophils % 63.6 % Segmented Neutrophils % (Manual) 43 % Band Neutrophils % (Manual) 27 % Lymphocytes % 20.5 % Lymphocytes % (Manual) 20 % Monocytes % 15.1 % Monocytes % (Manual) 8 % Eosinophils % 0.0 % Basophils % 0.4 % Myelocytes % (Manual) 2 % Nucleated Red Blood Cells % 0.0 /100WBC Immature Granulocytes # 0.020 10^3/ul Neutrophils # 3.4 10^3/ul Neutrophils # (Manual) 2.4 10^3/ul Band Neutrophils # 1.4 10^3/ul Lymphocytes (Manual) 1.0 10^3/ul Lymphocytes # 1.1 10^3/ul Monocytes # 0.8 10^3/ul Monocytes # (Manual) 0.4 10^3/ul Eosinophils # 0.0 10^3/ul Basophils # 0.0 10^3/ul Myelocytes # 0.1 10^3/ul Nucleated Red Blood Cells # 0.0 10^3/ul Platelet Estimate DECREASED Polychromasia 3+ Hypochromasia 1+ Poikilocytosis 1+ Anisocytosis 2+ Microcytosis 2+ Prothrombin Time 13.9 Sec Prothrombin Time Ratio 1.1 INR International Normalized Ratio 1.06 Activated Partial Thromboplast Time 27.6 Sec Sodium Level 140 mmol/L Potassium Level 3.5 mmol/L Chloride Level 104 mmol/L Carbon Dioxide Level 26 mmol/L Anion Gap 10 Blood Urea Nitrogen 15 mg/dl Creatinine 0.76 mg/dl Est Glomerular Filtrat Rate mL/min > 60 mL/min Glucose Level 120 mg/dl Calcium Level 9.1 mg/dl Total Bilirubin 0.7 mg/dl Direct Bilirubin 0.00 mg/dl Indirect Bilirubin 0.7 mg/dl Aspartate Amino Transf (AST/SGOT) 26 IU/L Alanine Aminotransferase (ALT/SGPT) 23 IU/L Alkaline Phosphatase 103 IU/L Troponin I < 0.012 ng/ml Total Protein 7.7 g/dl Albumin 4.2 g/dl Globulin 3.50 g/dl Albumin/Globulin Ratio 1.20 Lipase 66 U/L Current Medications Medications Dose Sig/Carina Start Time Status Last (Trade) Ordered Route PRN Stop Time Admin Dose Reason Admin Sodium 500 ml @ Q1H STAT 03/22/19 DC 03/22/19 Chloride 500 mls/hr IV 10:54 03/22/19 12:11 11:53 Ondansetron 4 mg ONCE STAT 03/22/19 DC HCl (Zofran IV 11:57 03/22/19 Inj) 12:01 Procedures/[facility] IV line was established patient was placed on electronic device monitor rhythm strip revealed a sinus tachycardia at 100 bpm with upright P and T waves. Patient was afebrile I administered 500 cc normal saline IV x1 and Zofran 4 mg IV for nausea. EKG performed, read by me revealed a normal sinus rhythm at 97 bpm, normal axis, narrow QRS complex, no concerning ST elevations or depressions noted CBC reveals anemia with a hemoglobin of 5, electrolytes liver function tests normal, troponin negative 1 view chest x-ray performed, read by me reveals a Port-A-Cath in the left chest, no acute infiltrates, no pneumothorax, no air under the diaphragm. I ordered transfusion 2 units PRBC IV over 4 hours for symptomatic anemia, patient will be admitted to [facility] for continued medical management Departure Diagnosis: Primary Impression: Symptomatic anemia Additional Impressions: Metastatic breast carcinoma Weakness Condition: TOO Rodríguez MD March 22, 2019 10:54
[2019-03-22] MEDS ORDERED: ONDANSETRON 4 MG INJ IV STA (11:57)
[2019-03-22] MEDS ORDERED: ACET1TAB40 ORAL (12:32)
[2019-03-22] MEDS ORDERED: BENA20TA4 ORAL (12:32)
[2019-03-22] MEDS ORDERED: CHOL200056 ORAL (12:32)
[2019-03-22] MEDS ORDERED: HYDR-3609 ORAL (12:32)
[2019-03-22] MEDS ORDERED: HYDROCODONE/APAP (10/325) TAB PO ONE (15:00)
--- NOTE | 2019-03-22 16:29 | HP ---
Date/Time of Note Date/Time of Note DATE: 03/22/19 TIME: 16:18 Assessment/Plan VTE Prophylaxis SCD applied (from Nsg): Yes Pharmacological prophylaxis: NA/contraindicated Pharm contraindication: thrombocytopenia Lines/Catheters IV Catheter Type (from Nrsg): PORT WITH NESBITT Assessment/Plan Assessment/Plan Assessment/Plan -Anemia most likely secondary to chemotherapy and malignancy. We will transfuse 3 units of packed red blood cells. -Metastatic right breast cancer Further recommendations based on clinical course. Plan of care discussed with Dr. Werner. Result Diagram: 03/22/19 1126 03/22/19 1126 Results 24hrs Laboratory Tests Test 03/22/19 11:26 White Blood Count 5.4 # Red Blood Count 1.52 #L Hemoglobin 5.0 #*L Hematocrit 15.0 #L Mean Corpuscular Volume 98.7 Mean Corpuscular Hemoglobin 32.9 Mean Corpuscular Hemoglobin Concent 33.3 Red Cell Distribution Width 19.6 H Platelet Count 131 #L Mean Platelet Volume 10.2 Immature Granulocytes % 0.400 Neutrophils % 63.6 Segmented Neutrophils % (Manual) 43 Band Neutrophils % (Manual) 27 H Lymphocytes % 20.5 Lymphocytes % (Manual) 20 Monocytes % 15.1 H Monocytes % (Manual) 8 Eosinophils % 0.0 Basophils % 0.4 Myelocytes % (Manual) 2 H Nucleated Red Blood Cells % 0.0 Immature Granulocytes # 0.020 Neutrophils # 3.4 Neutrophils # (Manual) 2.4 Band Neutrophils # 1.4 H Lymphocytes (Manual) 1.0 Lymphocytes # 1.1 Monocytes # 0.8 Monocytes # (Manual) 0.4 Eosinophils # 0.0 Basophils # 0.0 Myelocytes # 0.1 H Nucleated Red Blood Cells # 0.0 Platelet Estimate DECREASED Polychromasia 3+ Hypochromasia 1+ Poikilocytosis 1+ Anisocytosis 2+ Microcytosis 2+ Prothrombin Time 13.9 Prothrombin Time Ratio 1.1 INR International Normalized Ratio 1.06 Activated Partial Thromboplast Time 27.6 Sodium Level 140 Potassium Level 3.5 Chloride Level 104 Carbon Dioxide Level 26 Anion Gap 10 Blood Urea Nitrogen 15 Creatinine 0.76 Est Glomerular Filtrat Rate mL/min > 60 Glucose Level 120 Calcium Level 9.1 Total Bilirubin 0.7 Direct Bilirubin 0.00 Indirect Bilirubin 0.7 Aspartate Amino Transf (AST/SGOT) 26 Alanine Aminotransferase (ALT/SGPT) 23 Alkaline Phosphatase 103 Troponin I < 0.012 Total Protein 7.7 Albumin 4.2 Globulin 3.50 H Albumin/Globulin Ratio 1.20 Lipase 66 HPI/ROS Admit Date/Time Admit Date/Time Hx of Present Illness The patient is a 53-year-old female with stage IV right breast cancer with lung metastasis. Patient is status post right radical mastectomy, follows with Dr. Vargas in oncology consultation. Patient had his last chemotherapy 3 weeks ago and supposed to undergo another chemotherapy treatment today, however, she was noted to have low hemoglobin on routine labs and was sent to the emergency room by her oncologist. Patient denies any melena denies hematochezia. Patient denies any fever chills, denies any nausea vomiting. Patient complains of generalized weakness. On evaluation in the emergency room patient noted to have hemoglobin being 5, patient will be admitted for blood transfusion. ROS 12 point review of system is negative except for that mentioned in HPI PMH/Family/Social Past Medical History Medical History: cancer, hypertension, other (Asthma) Coded Allergies: oxycodone (Verified Allergy, Severe, 03/22/19) ondansetron (Verified Allergy, Unknown, RASH, 01/13/19) hydromorphone (Verified Adverse Reaction, Severe, N/V, 01/13/19) Past Surgical History Past Surgical Hx: other ( S/p partial mastectomy of the right breast in January 2018, s/p right total mastectomy in August 2018, status post recurrent tumor resection January 13, 2018) Family History Significant Family History: cancer (Breast cancer in patient's grandmother and aunt), other Social History Alcohol Use: none Smoking Status: Never smoker Drug Use: none Exam/Review of Systems Vital Signs Vitals Vital Signs Date Temp Pulse Resp B/P (MAP) Pulse Ox O2 O2 Flow FiO2 Time Delivery Rate 03/22/19 99.0 97 16 117/74 100 Room Air 11:44 (88) Exam Constitutional: alert, oriented Neck: supple Respiratory: clear to auscultation Cardiovascular: regular rate and rhythm, nl pulses Gastrointestinal: soft, non-tender Musculoskeletal: nl extremities to inspection Extremities: normal pulses Neurological: nl mental status Skin: other (Status post right radical mastectomy) Additional Comments Left chest Port-A-Cath ENIO ONEILL March 22, 2019 16:28
[2019-03-22] MEDS ORDERED: ONDANSETRON 4 MG INJ IV PRN (16:30)
[2019-03-22] MEDS ORDERED: HYDROCODONE/APAP (5/325) TAB PO PRN (16:30)
[2019-03-22] MEDS ORDERED: MAGNESIUM HYDROXIDE 30ML CUP PO PRN (16:30)
[2019-03-22] MEDS ORDERED: DOCUSATE SODIUM 100 MG CAP PO PRN (16:30)
[2019-03-22] MEDS ORDERED: ACETAMINOPHEN 325 MG TAB PO PRN (16:30)
[2019-03-22] MEDS: HYDROCODONE/APAP (5/325) TAB PO PRN (20:02)
[2019-03-22 20:30] VITALS: BP 144/72; PULSE 84; RESP 18
[2019-03-22 21:00] VITALS: Ht 152.4 cm; Wt 84.4 kg
[2019-03-22] MEDS: FAMOTIDINE 20 MG TAB PO SCH (22:28)
[2019-03-22 22:31] VITALS: BP 126/71; PULSE 90; RESP 20
[2019-03-23] MEDS ORDERED: METOCLOPRAMIDE 10 MG INJ IV SCH
[2019-03-23] MEDS ORDERED: METOCLOPRAMIDE 10 MG INJ IV PRN (00:30)
[2019-03-23] MEDS: HYDROCODONE/APAP (5/325) TAB PO PRN ×3 (01:39→18:26)
[2019-03-23 02:21] VITALS: BP 143/85; PULSE 75; RESP 19
[2019-03-23 07:54] VITALS: BP 170/94; PULSE 98; RESP 18
[2019-03-23 08:07] VITALS: BP 131/75; PULSE 77; RESP 18
[2019-03-23] MEDS: FAMOTIDINE 20 MG TAB PO SCH ×2 (08:48→20:41)
[2019-03-23 14:45] VITALS: BP 154/94; PULSE 89; RESP 18
--- NOTE | 2019-03-23 16:53 | PN ---
Date/Time of Note Date/Time of Note DATE: 03/23/19 TIME: 16:51 Assessment/Plan VTE [place]phylaxis [place] [facility] risk: 5 [place]CD [place] [facility] Yes Pharmacological prophylaxis: NA/contraindicated Pharm contraindication: thrombocytopenia Lines/Catheters [facility] Type [facility] portacath Assessment/Plan Hospital Course Patient is awake alert status post blood transfusion, if hemoglobin is above 8 patient can be discharged home and follow-up with with her oncologist Dr. Treadwell as an outpatient. Assessment/Plan -Anemia most likely secondary to chemotherapy and malignancy. Status post blood transfusion. -Metastatic right breast cancer -Hypertension, continue hydrochlorothiazide and lisinopril Further recommendations based on clinical course. Plan of care discussed with Dr. Werner. Result Diagram: 03/23/19 0436 03/22/19 1126 Results 24hrs Laboratory Tests Test 03/22/19 19:24 03/23/19 04:36 03/23/19 07:16 Hemoglobin 8.3 #L 6.8 *L Hematocrit 24.9 #L 20.5 L White Blood Count 4.4 L Red Blood Count 2.20 #L Mean Corpuscular Volume 93.2 Mean Corpuscular Hemoglobin 30.9 Mean Corpuscular 33.2 Hemoglobin Concent Red Cell Distribution Width 20.2 H Platelet Count 116 L Mean Platelet Volume 9.8 Immature Granulocytes % 0.200 Neutrophils % 58.1 Lymphocytes % 23.3 Monocytes % 17.4 H Eosinophils % 0.5 Basophils % 0.5 Nucleated Red Blood Cells % 0.0 Immature Granulocytes # 0.010 Neutrophils # 2.6 Lymphocytes # 1.0 Monocytes # 0.8 Eosinophils # 0.0 Basophils # 0.0 Nucleated Red Blood Cells # 0.0 Lab Scanned Report BLOOD TRANSFUSION Exam/Review of Systems Exam Vitals Vital Signs Date Temp Pulse Resp B/P (MAP) Pulse Ox O2 O2 Flow FiO2 Time Delivery Rate 03/23/19 98.4 89 18 154/94 99 14:45 (114) 03/23/19 Room Air 08:07 Intake and Output 03/22/19 03/22/19 03/23/19 1515:00 23:00 07:00 IntakeIntake Total 500 ml 700 ml 240 ml BalanceBalance 500 ml 700 ml 240 ml Exam Constitutional: alert, oriented Respiratory: clear to auscultation Cardiovascular: nl pulses Gastrointestinal: soft, non-tender Musculoskeletal: nl extremities to inspection Extremities: normal pulses Neurological: nl mental status Skin: other (Status post right radical mastectomy) Additional Comments Left chest Port-A-Cath Results Results 24hrs Laboratory Tests Test 03/22/19 19:24 03/23/19 04:36 03/23/19 07:16 Hemoglobin 8.3 #L 6.8 *L Hematocrit 24.9 #L 20.5 L White Blood Count 4.4 L Red Blood Count 2.20 #L Mean Corpuscular Volume 93.2 Mean Corpuscular Hemoglobin 30.9 Mean Corpuscular 33.2 Hemoglobin Concent Red Cell Distribution Width 20.2 H Platelet Count 116 L Mean Platelet Volume 9.8 Immature Granulocytes % 0.200 Neutrophils % 58.1 Lymphocytes % 23.3 Monocytes % 17.4 H Eosinophils % 0.5 Basophils % 0.5 Nucleated Red Blood Cells % 0.0 Immature Granulocytes # 0.010 Neutrophils # 2.6 Lymphocytes # 1.0 Monocytes # 0.8 Eosinophils # 0.0 Basophils # 0.0 Nucleated Red Blood Cells # 0.0 Lab Scanned Report BLOOD TRANSFUSION Medications Medication Current Medications Acetaminophen (Tylenol Tab) 650 mg Q6H PRN PO .PAIN 1-3 OR TEMP; Start 03/22/19 at 16:30 Acetaminophen/ Hydrocodone Bitart ([place] (5/325)) 1 tab Q6H PRN PO .MOD PAIN 4- 6 Last administered on 03/23/19at 13:40; Admin Dose 1 TAB; Start 03/22/19 at 16:30 Acetaminophen/ Hydrocodone Bitart ([place] (5/325)) 2 tab Q6H PRN PO .SEVERE PAIN 7-10 Last administered on 03/23/19at 07:37; Admin Dose 2 TAB; Start 03/22/19 at 16:30 Docusate Sodium (Colace) 100 mg Q12H PRN PO .CONSTIPATION Last administered on 03/22/19at 22:29; Admin Dose 100 MG; Start 03/22/19 at 16:30 Magnesium Hydroxide (Milk Of Mag) 30 ml DAILY PRN PO .CONSTIPATION; Start 03/22/19 at 16:30 Famotidine (Pepcid) 20 mg Q12 PO Last administered on 03/23/19at 08:48; Admin Dose 20 MG; Start 03/22/19 at 21:00 Metoclopramide HCl (Reglan) 10 mg Q6H PRN IV NAUSEA AND/OR VOMITING; Start 03/23/19 at 00:30 ENIO ONEILL March 23, 2019 16:53
[2019-03-23] MEDS ORDERED: HEPARIN (100 UNITS/ML) 5 ML SYG CATHETER ONE ×2 (19:30→20:00)
[2019-03-23 19:56] VITALS: BP 151/80; PULSE 90; RESP 20
[2019-03-24] MEDS ORDERED: HYDROCHLOROTHIAZIDE 25 MG TAB PO SCH (09:00)
[2019-03-24] MEDS ORDERED: BENAZEPRIL 20 MG TAB PO SCH (09:00)
--- NOTE | 2019-03-25 22:56 | DS ---
Date/Time of Note Date/Time of Note DATE: 03/25/19 TIME: 22:54 Discharge Summary Admission/Discharge Info Admit Date/Time March 22, 2019 at 12:01 Discharge Date/Time March 23, 2019 at 20:30 Patient Condition: Stable Hx of Present Illness The patient is a 53-year-old female with stage IV right breast cancer with lung metastasis. Patient is status post right radical mastectomy, follows with Dr. Vargas in oncology consultation. Patient had his last chemotherapy 3 weeks ago and supposed to undergo another chemotherapy treatment today, however, she was noted to have low hemoglobin on routine labs and was sent to the emergency room by her oncologist. Patient denies any melena denies hematochezia. Patient denies any fever chills, denies any nausea vomiting. Patient complains of generalized weakness. On evaluation in the emergency room patient noted to have hemoglobin being 5, patient will be admitted for blood transfusion. Hospital Course Assessment/Plan -Anemia most likely secondary to chemotherapy and malignancy. Pt denies melena, denies hematochezia. Hgb is 8.4 Status post blood transfusion. -Metastatic right breast cancer -Hypertension, continue hydrochlorothiazide and lisinopril Plan of care discussed with Dr. Irene. Home Meds Reported Medications Benazepril Hcl* (Benazepril Hcl*) 20 Mg Tablet, 1 TAB ORAL DAILY 03/22/19 Cholecalciferol (Vitamin D3) (Vitamin D-3) 2,000 Unit Tablet, 1 TAB ORAL DAILY 03/22/19 Hydrocodone/Acetaminophen (Hydrocodone-Acetamin 10-325 mg) 1 Each Tablet, 1 TAB ORAL Q6 PRN for PAIN LEVEL 8-10 03/22/19 Acetaminophen with Codeine (Acetaminophen-Cod #3 Tablet) 1 Each Tablet, 1 TAB ORAL Q6 PRN for PAIN LEVEL 6-10 03/22/19 Hydrochlorothiazide* (Hydrochlorothiazide*) 25 Mg Tab, 25 MG PO DAILY, #30 TAB 09/02/18 Discontinued Reported Medications Niraparib Tosylate (Zejula) 100 Mg Capsule, 100 MG PO HS, CAP 01/12/19 Benazepril Hcl* (Benazepril Hcl*) 10 Mg Tablet, 10 MG PO DAILY, #30 TAB 04/29/18 Discontinued Scripts Rifampin* (Rifampin* Pediatric IV Syringe) 10 Mg/Ml Susp, 600 MG PO DAILY for 14 Days Prov:ENIO ONEILL 01/30/19 Cephalexin* (Cephalexin* Susp) 250 Mg/5 Ml Susp.recon, 500 MG PO Q8 for 14 Days, #1 BOTTLE Prov:ENIO ONEILL 01/30/19 Collagenase* (Santyl*) 30 Gm Oint..gm., 1 APPLIC TOP BID for 14 Days Prov:ENIO ONEILL 01/30/19 Hydrocodone Bit-Acetaminophen (Hydrocodone Bit-APAP) 5-325MG Tablet, 1 TAB PO Q4H PRN for MODERATE PAIN LEVEL 4-6, #30 TAB Prov:ENIO ONEILL 01/30/19 Ferrous Sulfate* (Ferrous Sulfate*) 325 Mg Tabec, 325 MG PO BID, #60 TAB Prov:DERRICK IRENE MD 01/15/19 Follow-up Plan Discharge if hemoglobin is equal or above 8, she is to follow-up with her oncologist Dr. Gann as an outpatient Primary Care Provider [facility] Time spent on discharge: > 30 minutes Pending Labs Laboratory Tests Test 03/25/19 09:01 Lab Scanned Report BLOOD TRANSFUSION ENIO ONEILL March 25, 2019 22:56
== END 2019-03-23 20:30 | disposition home or self-care (01) | DRG 812 ==
LOC: E/R 10:29 → MS1 12:01
PROVIDERS: ADMIT Internal Medicine; ATTEND Internal Medicine
PROC: 30233N1 Transfusion of Nonautologous Red Blood Cells into Peripheral Vein, Percutaneous Approach (ICD-10-PCS; principal; 2019-03-22)
DX: D64.81 Anemia due to antineoplastic chemotherapy (principal); C78.00 Secondary malignant neoplasm of unspecified lung; C50.911 Malignant neoplasm of unspecified site of right female breast; D63.8 Anemia in other chronic diseases classified elsewhere
CPT/HCPCS: 36430; 71045; 80053; 83690; 84484; 85014; 85018; 85025; 85610; 85730; 86850; 86900; 86901; 86920; 93005; J1642; J2405; J7040; P9016

== ENCOUNTER 2019-04-07 21:02 | Inpatient (IN) | payer OTHER ==
[~2019-04-07] VITALS: Ht 152.4 cm; Wt 86.1 kg
[~2019-04-07 21:02] MED LIST changes: +ACET1TAB40 ORAL; -BENA10TA4 PO; +BENA20TA4 ORAL; -CEPH250S33 PO; +CHOL200056 ORAL; -FER325 PO; -HYDR-3601 PO; +HYDR-3609 ORAL; -NIRA100C PO; -RIF120L PO; -SAN30GM TOP
--- NOTE | 2019-04-07 22:56 | ERD ---
ER Documentation Chief Complaint Chief Complaint dizzy x 2 days HPI The patient is a 53-year-old female, presenting to the ER because of dizziness intermittently for the last 2 days, seen her doctor 2 days ago and was asked by her doctor today to go to the ER because of low hemoglobin. She denies syncope, near syncope, neck pain, chest pain, dyspnea, abdominal pain, vomiting, dysuria, diarrhea. She does not smoke nor drink, smoke marijuana Past medical history: Metastatic right breast cancer, hypertension Past surgical history: Left chest Port-A-Cath, right mastectomy, appendectomy, 2 ROS All systems reviewed and are negative except as per history of present illness. Medications Home Meds Reported Medications Palbociclib (Ibrance) 75 Mg Capsule, 75 MG PO DAILY 04/08/19 Capecitabine (Capecitabine) 500 Mg Tablet, 500 MG PO DAILY 04/08/19 Benazepril Hcl* (Benazepril Hcl*) 20 Mg Tablet, 1 TAB ORAL DAILY 03/22/19 Cholecalciferol (Vitamin D3) (Vitamin D-3) 2,000 Unit Tablet, 1 TAB ORAL DAILY 03/22/19 Hydrocodone/Acetaminophen (Hydrocodone-Acetamin 10-325 mg) 1 Each Tablet, 1 TAB ORAL Q6 PRN for PAIN LEVEL 8-10 03/22/19 Discontinued Reported Medications Acetaminophen with Codeine (Acetaminophen-Cod #3 Tablet) 1 Each Tablet, 1 TAB ORAL Q6 PRN for PAIN LEVEL 6-10 03/22/19 Hydrochlorothiazide* (Hydrochlorothiazide*) 25 Mg Tab, 25 MG PO DAILY, #30 TAB 09/02/18 Allergies Allergies: Coded Allergies: oxycodone (Verified Allergy, Severe, 03/22/19) ondansetron (Verified Allergy, Unknown, RASH, 01/13/19) hydromorphone (Verified Adverse Reaction, Severe, N/V, 01/13/19) PMhx/Soc History of Surgery: Yes Anesthesia Reaction: No Hx Neurological Disorder: No Hx Respiratory Disorders: No Hx Cardiac Disorders: No Hx Psychiatric Problems: No Hx Miscellaneous Medical Probl: No Hx Alcohol Use: No Hx Substance Use: No Hx Tobacco Use: No Physical Exam Vitals Vital Signs Date Temp Pulse Resp B/P (MAP) Pulse Ox O2 O2 Flow FiO2 Time Delivery Rate 04/08/19 99.2 87 15 106/71 98 Room Air 01:15 (83) 04/07/19 99.7 108 18 130/82 99 23:46 (98) 04/07/19 99.7 98 18 116/58 99 21:38 (77) Physical Exam Const: No acute distress.Pale Head: Atraumatic. Eyes: Normal Conjunctiva. ENT: Normal External Ears, Nose and Mouth. Neck: Full range of motion. No meningismus. Resp: Clear to auscultation bilaterally. Cardio: Regular rate and rhythm. Abd: Soft, non distended, normal bowel sounds, non tender. Skin: No petechiae or rashes. Back: No midline or flank tenderness. Ext: No cyanosis, or edema. Neur: Awake and alert. No focal deficit Psych: Normal Mood and Affect. Result Diagram: 04/07/19 2345 04/07/19 2345 Results 24 hrs Laboratory Tests Test 04/07/19 23:09 04/07/19 23:11 04/07/19 23:45 Bedside Urine pH (LAB) 5.5 Bedside Urine Protein (LAB) Trace Bedside Urine Glucose (UA) Negative Bedside Urine Ketones (LAB) Negative Bedside Urine Blood 1+ Bedside Urine Nitrite (LAB) Negative Bedside Urine Leukocyte Esterase Negative (L POC Beta HCG, Qualitative NEGATIVE White Blood Count 6.8 10^3/ul Red Blood Count 1.72 10^6/ul Hemoglobin 5.5 g/dl Hematocrit 16.3 % Mean Corpuscular Volume 94.8 fl Mean Corpuscular Hemoglobin 32.0 pg Mean Corpuscular 33.7 g/dl Hemoglobin Concent Red Cell Distribution Width 15.9 % Platelet Count 85 10^3/UL Mean Platelet Volume 9.1 fl Immature Granulocytes % 0.600 % Neutrophils % 55.8 % Lymphocytes % 27.2 % Monocytes % 16.2 % Eosinophils % 0.1 % Basophils % 0.1 % Nucleated Red Blood Cells % 0.0 /100WBC Immature Granulocytes # 0.040 10^3/ul Neutrophils # 3.8 10^3/ul Lymphocytes # 1.9 10^3/ul Monocytes # 1.1 10^3/ul Eosinophils # 0.0 10^3/ul Basophils # 0.0 10^3/ul Nucleated Red Blood Cells # 0.0 10^3/ul Prothrombin Time 14.2 Sec Prothrombin Time Ratio 1.1 INR International Normalized Ratio 1.09 Activated Partial Thromboplast 29.9 Sec Time Sodium Level 136 mmol/L Potassium Level 3.3 mmol/L Chloride Level 98 mmol/L Carbon Dioxide Level 31 mmol/L Anion Gap 7 Blood Urea Nitrogen 15 mg/dl Creatinine 0.70 mg/dl Est Glomerular Filtrat Rate mL/min > 60 mL/min Glucose Level 120 mg/dl Calcium Level 8.9 mg/dl Total Bilirubin 0.4 mg/dl Direct Bilirubin 0.00 mg/dl Indirect Bilirubin 0.4 mg/dl Aspartate Amino Transf (AST/SGOT) 18 IU/L Alanine 22 IU/L Aminotransferase (ALT/SGPT) Alkaline Phosphatase 86 IU/L Troponin I < 0.012 ng/ml Total Protein 7.1 g/dl Albumin 4.1 g/dl Globulin 3.00 g/dl Albumin/Globulin Ratio 1.36 Current Medications Medications Dose Sig/Carina Start Time Status Last (Trade) Ordered Route PRN Stop Time Admin Dose Reason Admin Potassium 40 meq ONCE ONCE 04/08/19 DC 04/08/19 Chloride PO 01:37 01:41 (Klor-Con 20) 04/08/19 01:38 Procedures/MDM EKG: Read by emergency physician Rate/Rhythm: Normal Sinus Rhythm 98 beats/min QRS, ST, T-waves: No ST elevation, no T inversion Impression: Normal EKG MEDICAL MAKING DECISION: The patient is a 53-year-old female, presenting with acute cinematic anemia, acute hypokalemia, thrombus cytopenia, acute hematuria.. I have ordered to transfuse her 3 unit of packed red blood cell due to symptomatic anemia, potassium chloride 40 mg p.o. for acute hypokalemia The differential diagnoses considered include but are not limited to metastatic breast CA, marrow suppression from chemotherapy, gastrointestinal bleeding Departure Diagnosis: Primary Impression: Symptomatic anemia Additional Impressions: Hypokalemia Hematuria Condition: Stable Comments I discussed the findings with the patient. I discussed the patient with Dr Werner at 2 AM, who was made aware of the lab, the treatment, the patient condition. The patient is admitted to [facility] Disclaimer: Inadvertent spelling and grammatical errors are likely due to EHR /dictation software use and do not reflect on the overall quality of patient care. Also, please note that the electronic time recorded on this note does not necessarily reflect the actual time of the patient encounter. WESLEY CORDERO MD April 07, 2019 22:56
[2019-04-08] MEDS ORDERED: POTASSIUM CHLORIDE (SR) 20 MEQ TAB PO ONE (01:37)
[2019-04-08] MEDS ORDERED: PALB75CA PO (04:54)
[2019-04-08] MEDS ORDERED: CAPE500T13 PO (04:54)
[2019-04-08 05:00] VITALS: BP 129/65; PULSE 88; RESP 18
[2019-04-08 05:30] VITALS: BP 120/63; PULSE 88; RESP 18
[2019-04-08] MEDS ORDERED: ACETAMINOPHEN 325 MG TAB PO PRN (05:30)
[2019-04-08] MEDS ORDERED: METOCLOPRAMIDE 10 MG INJ IV PRN (05:30)
[2019-04-08 05:59] VITALS: Ht 152.4 cm; Wt 86.1 kg
[2019-04-08 06:30] VITALS: BP 119/65; PULSE 86; RESP 18
[2019-04-08 08:01] VITALS: BP 101/62; PULSE 69; RESP 18
[2019-04-08] MEDS: HYDROCODONE/APAP (10/325) TAB PO PRN ×3 (08:21→19:45)
[2019-04-08] MEDS: BENAZEPRIL 20 MG TAB PO SCH (08:21)
[2019-04-08] MEDS: CHOLECALCIFEROL 2,000 UNIT CAP PO SCH (08:21)
[2019-04-08] MEDS ORDERED: NON-FORMULARY/PATIENT OWN MED (Cholecalciferol (Vitamin D3) (Vitamin D-3) 1 TAB) ORAL SCH (09:00)
--- NOTE | 2019-04-08 16:37 | HP ---
DATE OF ADMISSION: 04/08/2019 CHIEF COMPLAINT: Generalized weakness. HISTORY OF PRESENT ILLNESS: The patient is a 53-year-old female with metastatic breast cancer. The patient recently had PET scan and was told that her lung mets have worsened. The patient is being followed by Dr. Perez from oncology standpoint.The patient's last chemotherapy was a few weeks ago. The patient came to ER with generalized weakness and was feeling dizzy. The patient was seen in the ER, was noted to have hemoglobin of 5.5. The patient is being admitted for the management. The patient denied any chest pain. No history of headache. The patient was feeling dizzy upon presentation; however, after transfusion, dizziness has improved. The patient did not have any syncope. No history of abdominal pain. No history of chest pain. No history of leg edema. No history of focal weakness. The patient does feel shortness of breath on exertion, but at rest she is comfortable. Denies any hemoptysis or bleeding from any site. REVIEW OF SYSTEMS: Rest review of systems unremarkable. PAST MEDICAL HISTORY: As stated above. PAST SURGICAL HISTORY: Status post right mastectomy and then subsequently also underwent a recurrent tumor resection. FAMILY HISTORY: Breast cancer in patient's grandmother and aunt. SOCIAL HISTORY: No smoking or alcohol. ALLERGIES: 1. ZOFRAN CAUSES RASH. 2. HYDROMORPHONE CAUSES NAUSEA AND VOMITING. PHYSICAL EXAMINATION: GENERAL: Revealed the patient to be awake, alert, fairly oriented. VITAL SIGNS: Temperature 98.6, pulse 69, respiration 18, blood pressure 101/62, satting 99 on room air. HEENT: Atraumatic, normocephalic. Conjunctivae are pale. Lids are normal. Oropharynx revealed pale mucosa. NECK: Supple. No thyromegaly. CHEST: Fairly clear. No use of accessory muscles. CARDIOVASCULAR: S1, S2 normal, no murmur. ABDOMEN: Soft and nontender. EXTREMITIES: No edema. NEUROLOGIC: The patient is awake, alert, fairly oriented with no gross focal deficit. LABORATORY DATA: WBC 6.8, hemoglobin 5.5, platelet 85. Sodium 136, potassium 3.3, BUN 15, creatinine 0.7, glucose of 120, liver enzymes normal. IMPRESSION: 1. Symptomatic anemia due to metastatic breast cancer. The patient has received 2 units of PRBC. Will do followup CBC tomorrow. 2. Metastatic breast cancer. The patient will follow up with upon discharge. 3. Thrombocytopenia. No active bleeding at this time. Will continue to monitor. 4. Hypokalemia. The patient did receive 40 mEq of potassium in the ER. Will do followup BMP tomorrow. If patient continues to do well and remains stable, she will be discharged home tomorrow. Dictated By: DERRICK RAYMOND/JUAN MIGUEL Conf#: [id number] DID#: [id number] MTDD
[2019-04-08 19:57] VITALS: BP 117/73; PULSE 18; PULSE 71; RESP 18
[2019-04-09] MEDS: HYDROCODONE/APAP (10/325) TAB PO PRN ×5 (01:09→21:32)
[2019-04-09 02:05] VITALS: BP 118/75; PULSE 69; RESP 18
--- NOTE | 2019-04-09 06:16 | PN ---
Date/Time of Note Date/Time of Note DATE: 04/09/19 TIME: 06:16 Assessment/Plan VTE Prophylaxis Risk score (from [facility] [place]0 risk: 5 SCD applied (from [facility] [place]): Yes SCD contraindicated: other Pharmacological prophylaxis: other Pharm contraindication: other Lines/Catheters IV [facility]ter Type (from [facility] [place] Urinary Cath still in place: No Assessment/Plan Assessment/Plan 1. Symptomatic anemia due to metastatic breast cancer. Hgb 7.6 today. c/o generalized weakness; wants more transfusion or wants to wait till tomorrow regarding her H/H - SP 2 units of PRBC. yesterday - monitor CBC 2. Metastatic breast cancer. 3. Pancytopenia - No active bleeding at this time. - continue to monitor. 4. Hypokalemia- resolved St If patient continues to do well and remains stable, she will be discharged home tomorrow. Result Diagram: 04/09/19 0441 04/09/19 0440 Results 24hrs Laboratory Tests Test 04/08/19 07:07 04/09/19 04:40 04/09/19 04:41 Lab Scanned Report BLOOD TRANSFUSION Sodium Level 140 Potassium Level 4.1 Chloride Level 105 Carbon Dioxide Level 30 Anion Gap 5 Blood Urea Nitrogen 12 Creatinine 0.59 Est Glomerular Filtrat > 60 Rate mL/min Glucose Level 113 Calcium Level 8.3 L White Blood Count 4.6 #L Red Blood Count 2.37 #L Hemoglobin 7.6 #L Hematocrit 22.8 #L Mean Corpuscular Volume 96.2 Mean Corpuscular Hemoglobin 32.1 Mean Corpuscular 33.3 Hemoglobin Concent Red Cell Distribution Width 15.5 H Platelet Count 78 L Mean Platelet Volume 10.7 H Immature Granulocytes % 1.100 H Neutrophils % 52.7 Lymphocytes % 25.4 Monocytes % 20.0 H Eosinophils % 0.4 Basophils % 0.4 Nucleated Red Blood Cells % 0.0 Immature Granulocytes # 0.050 H Neutrophils # 2.4 Lymphocytes # 1.2 Monocytes # 0.9 Eosinophils # 0.0 Basophils # 0.0 Nucleated Red Blood Cells # 0.0 Subjective 24 Hr Interval Summary Free Text/Dictation -nad - afebrile - SP2 units of PRBC.; still c/o general weakness; worried about dropped in Hgb next day - no events reported overnight dw staff Eyes: no complaints ENT: no complaints Respiratory: no complaints Cardiovascular: no complaints Gastrointestinal: no complaints Genitourinary: no complaints Musculoskeletal: other (generelized weakness) Neurologic: no complaints Lymphatic: no complaints Psychological: no complaints Immunologic: no complaints Exam/Review of Systems Exam Vitals Vital Signs Date Temp Pulse Resp B/P (MAP) Pulse Ox O2 O2 Flow FiO2 Time Delivery Rate 04/09/19 97.7 69 18 118/75 98 02:05 (89) 04/08/19 Room Air 08:01 High Flow Intake and Output 04/08/19 04/08/19 04/09/19 1515:00 23:00 07:00 IntakeIntake Total 1360 ml 720 ml OutputOutput Total 2 ml 3 ml BalanceBalance 1358 ml 717 ml Constitutional: alert, well developed Psych: nl mood/affect Head: normocephalic Eyes: nl lids, nl sclera ENMT: nl external ears & nose Neck: non-tender Respiratory: clear to auscultation Cardiovascular: nl pulses, other (s1s2) Gastrointestinal: soft, non-tender Musculoskeletal: nl extremities to inspection Extremities: normal pulses Neurological: nl speech Skin: nl turgor Lymph: nontender Results Results 24hrs Laboratory Tests Test 04/08/19 07:07 04/09/19 04:40 04/09/19 04:41 Lab Scanned Report BLOOD TRANSFUSION Sodium Level 140 Potassium Level 4.1 Chloride Level 105 Carbon Dioxide Level 30 Anion Gap 5 Blood Urea Nitrogen 12 Creatinine 0.59 Est Glomerular Filtrat > 60 Rate mL/min Glucose Level 113 Calcium Level 8.3 L White Blood Count 4.6 #L Red Blood Count 2.37 #L Hemoglobin 7.6 #L Hematocrit 22.8 #L Mean Corpuscular Volume 96.2 Mean Corpuscular Hemoglobin 32.1 Mean Corpuscular 33.3 Hemoglobin Concent Red Cell Distribution Width 15.5 H Platelet Count 78 L Mean Platelet Volume 10.7 H Immature Granulocytes % 1.100 H Neutrophils % 52.7 Lymphocytes % 25.4 Monocytes % 20.0 H Eosinophils % 0.4 Basophils % 0.4 Nucleated Red Blood Cells % 0.0 Immature Granulocytes # 0.050 H Neutrophils # 2.4 Lymphocytes # 1.2 Monocytes # 0.9 Eosinophils # 0.0 Basophils # 0.0 Nucleated Red Blood Cells # 0.0 Medications Medication Current Medications Metoclopramide HCl (Reglan) 10 mg Q6H PRN IV NAUSEA AND/OR VOMITING; Start 04/08/19 at 05:30 Acetaminophen (Tylenol Tab) 650 mg Q6H PRN PO MILD PAIN(1-3)OR ELEVATED TEMP Last administered on 04/08/19at 16:05; Admin Dose 650 MG; Start 04/08/19 at 05:30 Benazepril HCl (Lotensin) 20 mg DAILY PO ; Start 04/08/19 at 09:00 Cholecalciferol (Vitamin D) 2,000 unit DAILY PO Last administered on 04/08/19at 08:21; Admin Dose 2,000 UNIT; Start 04/08/19 at 09:00 Acetaminophen/ Hydrocodone Bitart (Boling ()) 1 tab Q5H PRN PO MODERATE PAIN LEVEL 4-6 Last administered on 04/09/19at 06:11; Admin Dose 1 TAB; Start 04/08/19 at 20:30 JOSE PARSONS April 09, 2019 06:16
[2019-04-09 07:28] VITALS: BP 106/70; PULSE 67; RESP 15
[2019-04-09] MEDS: BENAZEPRIL 20 MG TAB PO SCH (08:10)
[2019-04-09] MEDS: CHOLECALCIFEROL 2,000 UNIT CAP PO SCH (08:10)
[2019-04-09] MEDS ORDERED: DOCUSATE SODIUM 100 MG CAP PO PRN (12:00)
[2019-04-09 14:48] VITALS: BP 118/73; PULSE 73; RESP 18
[2019-04-09 20:15] VITALS: BP 137/81; PULSE 67; RESP 18
[2019-04-10 02:22] VITALS: BP 143/88; PULSE 73; RESP 18
[2019-04-10] MEDS: HYDROCODONE/APAP (10/325) TAB PO PRN ×3 (02:39→12:10)
[2019-04-10 07:18] VITALS: BP 134/91; PULSE 69; RESP 18
[2019-04-10] MEDS: CHOLECALCIFEROL 2,000 UNIT CAP PO SCH (09:53)
[2019-04-10] MEDS: BENAZEPRIL 20 MG TAB PO SCH (09:53)
--- NOTE | 2019-04-12 00:48 | DS ---
Date/Time of Note Date/Time of Note DATE: 04/12/19 TIME: 00:44 Discharge Summary Admission/Discharge Info Admit Date/Time April 08, 2019 at 09:39 Discharge Date/Time April 10, 2019 at 14:00 Patient Condition: Stable Hx of Present Illness The patient is a 53-year-old female with metastatic breast cancer. The patient recently had PET scan and was told that her lung mets have worsened. The patient is being followed by in oncology. The patient's last chemotherapy was a few weeks ago. The patient came to ER with generalized weakness and was feeling dizzy. The patient was seen in the ER, was noted to have hemoglobin of 5.5. The patient is being admitted for the management. The patient denied any chest pain. No history of headache. The patient was feeling dizzy upon presentation; however, after transfusion, dizziness has improved. The patient did not have any syncope. No history of abdominal pain. No history of chest pain. No history of leg edema. No history of focal weakness. The patient does feel shortness of breath on exertion, but at rest she is comfortable. Denies any hemoptysis or bleeding from any site. Hospital Course Patient discharged home by Dr. Werner 1. Symptomatic anemia due to metastatic breast cancer. The patient has received 3 units of PRBC. Hgb is 9.3. 2. Metastatic breast cancer. The patient will follow up with Dr. Vargas upon discharge. 3. Thrombocytopenia. No active bleeding at this time. Will continue to monitor. 4. Hypokalemia,s/p replacement, BMP is wnl. Home Meds Reported Medications Palbociclib (Ibrance) 75 Mg Capsule, 75 MG PO DAILY 04/08/19 Capecitabine (Capecitabine) 500 Mg Tablet, 500 MG PO DAILY 04/08/19 Benazepril Hcl* (Benazepril Hcl*) 20 Mg Tablet, 1 TAB ORAL DAILY 03/22/19 Cholecalciferol (Vitamin D3) (Vitamin D-3) 2,000 Unit Tablet, 1 TAB ORAL DAILY 03/22/19 Hydrocodone/Acetaminophen (Hydrocodone-Acetamin 10-325 mg) 1 Each Tablet, 1 TAB ORAL Q6 PRN for PAIN LEVEL 8-10 03/22/19 Discontinued Reported Medications Acetaminophen with Codeine (Acetaminophen-Cod #3 Tablet) 1 Each Tablet, 1 TAB ORAL Q6 PRN for PAIN LEVEL 6-10 03/22/19 Hydrochlorothiazide* (Hydrochlorothiazide*) 25 Mg Tab, 25 MG PO DAILY, #30 TAB 09/02/18 Follow-up Plan Follow up with oncologist in 1-2 weeks. Primary Care Provider [facility] Time spent on discharge: > 30 minutes ENIO ONEILL April 12, 2019 00:48
== END 2019-04-10 14:00 | disposition home or self-care (01) | DRG 181 ==
LOC: E/R 21:02 → MS1 04-08 02:04 → OBSVTOIN 04-08 09:39
PROVIDERS: ADMIT Internal Medicine; ATTEND Internal Medicine
PROC: 30233N1 Transfusion of Nonautologous Red Blood Cells into Peripheral Vein, Percutaneous Approach (ICD-10-PCS; principal; 2019-04-08)
DX: C78.00 Secondary malignant neoplasm of unspecified lung (principal); D61.818 Other pancytopenia; D63.0 Anemia in neoplastic disease; I10 Essential (primary) hypertension; E87.6 Hypokalemia; Z90.11 Acquired absence of right breast and nipple; Z80.3 Family history of malignant neoplasm of breast; Z85.3 Personal history of malignant neoplasm of breast
CPT/HCPCS: 36415; 36430; 80048; 80053; 81003; 81025; 82270; 84484; 85025; 85610; 85730; 86850; 86900; 86901; 86920; 87081; 93005; G0378; P9016

== ENCOUNTER 2019-09-07 13:09 | Inpatient (IN) | payer OTHER ==
[~2019-09-07] VITALS: Ht 152.4 cm; Wt 74.4 kg
[~2019-09-07 13:09] MED LIST changes: -ACET1TAB40 ORAL; +ALBU18HF INHALATION; +BUDE0.5A HHN; +CAPE500T13 PO; +DOCU-159 PO; -HYDR25TA6 PO; +MORP-53 PO; +PALB75CA PO; +PRED5TAB PO
[2019-09-07 17:07] VITALS: Ht 152.4 cm; Wt 74.4 kg
[2019-09-07 17:30] VITALS: BP 124/79; PULSE 120; RESP 16
[2019-09-07] MEDS ORDERED: ACETAMINOPHEN 325 MG TAB PO PRN ×2 (18:30→22:00)
[2019-09-07 20:00] VITALS: BP 115/83; PULSE 125; RESP 18
[2019-09-07] MEDS: HYDROCODONE/APAP (5/325) TAB PO PRN (21:00)
[2019-09-07] MEDS ORDERED: ENOXAPARIN 30 MG/0.3 ML SYG SC SCH (21:00)
[2019-09-07] MEDS ORDERED: NACL 0.9% 3 ML SYG IV SCH (22:00)
[2019-09-07] MEDS ORDERED: ONDANSETRON 4 MG INJ IV PRN (22:00)
[2019-09-07 23:36] VITALS: BP 122/77; PULSE 127; RESP 19
[2019-09-08] MEDS: HYDROCODONE/APAP (5/325) TAB PO PRN ×5 (02:59→23:28)
[2019-09-08 03:00] VITALS: BP 110/77; PULSE 121; RESP 19
[2019-09-08] MEDS: FAMOTIDINE 20 MG INJ IV SCH ×2 (08:48→21:05)
[2019-09-08] MEDS: ENOXAPARIN 30 MG/0.3 ML SYG SC SCH (08:53)
[2019-09-08] MEDS: LEVALBUTEROL (NEB) 0.63 MG/3 ML AMP HHN SCH ×3 (10:00→22:22)
[2019-09-08 11:19] VITALS: BP 124/77; PULSE 122; RESP 16
[2019-09-08 15:26] VITALS: BP 129/81; PULSE 123; RESP 16
[2019-09-08 19:24] VITALS: BP 143/78; PULSE 125; RESP 22
[2019-09-08] MEDS ORDERED: LEVALBUTEROL (NEB) 0.63 MG/3 ML AMP HHN SCH (20:00)
[2019-09-08 23:16] VITALS: BP 135/86; PULSE 118; RESP 20
[2019-09-08] MEDS ORDERED: DOCUSATE SODIUM 100 MG CAP PO PRN (23:30)
[2019-09-08] MEDS ORDERED: ALBUTEROL 18 GM INHALER INH SCH (23:30)
[2019-09-09] MEDS: ALBUTEROL HFA 8 GM INHALER INH SCH ×5 (01:00→21:00)
[2019-09-09] MEDS: HYDROCODONE/APAP (5/325) TAB PO PRN ×6 (03:29→23:03)
[2019-09-09 04:00] VITALS: BP 138/84; PULSE 92; RESP 20
[2019-09-09 07:42] VITALS: BP 108/69; PULSE 125; RESP 16
[2019-09-09] MEDS: CHOLECALCIFEROL 2,000 UNIT CAP PO SCH (08:32)
[2019-09-09] MEDS: ENOXAPARIN 30 MG/0.3 ML SYG SC SCH (08:35)
[2019-09-09] MEDS: BENAZEPRIL 20 MG TAB PO SCH (09:00)
[2019-09-09] MEDS: FAMOTIDINE 20 MG INJ IV SCH ×2 (09:00→20:46)
[2019-09-09] MEDS ORDERED: predniSONE 5 MG TAB PO SCH (09:00)
[2019-09-09] MEDS ORDERED: BENAZEPRIL 20 MG TAB PO SCH (09:00)
[2019-09-09] MEDS: BUDESONIDE (NEB) 0.5MG/2ML AMP HHN SCH ×2 (09:06→20:28)
[2019-09-09] MEDS: LEVALBUTEROL (NEB) 0.63 MG/3 ML AMP HHN SCH ×3 (09:06→20:37)
[2019-09-09] MEDS: predniSONE 10 MG TAB PO SCH (09:25)
[2019-09-09] MEDS: CAPECITABINE 500 MG TAB PO SCH (10:40)
[2019-09-09 11:13] VITALS: BP 129/81; PULSE 123; RESP 18
[2019-09-09 15:26] VITALS: BP 115/83; PULSE 124; RESP 16
[2019-09-09] MEDS ORDERED: LIDOCAINE 1% (MPF) 5 ML VIAL ONE (17:13)
[2019-09-09 17:20] VITALS: BP 119/76; PULSE 118
[2019-09-09 20:00] VITALS: BP 113/77; PULSE 129; RESP 19
[2019-09-10] VITALS (7 sets, daily range): BP systolic 105–120; BP diastolic 63–78; PULSE 92–121; RESP 17–22
[2019-09-10] MEDS: ALBUTEROL HFA 8 GM INHALER INH SCH ×2 (01:00→05:00)
[2019-09-10] MEDS: LEVALBUTEROL (NEB) 0.63 MG/3 ML AMP HHN SCH ×4 (01:21→23:40)
[2019-09-10] MEDS: HYDROCODONE/APAP (5/325) TAB PO PRN ×5 (05:47→22:02)
[2019-09-10] MEDS: BUDESONIDE (NEB) 0.5MG/2ML AMP HHN SCH ×2 (08:49→20:31)
[2019-09-10] MEDS: FAMOTIDINE 20 MG INJ IV SCH ×2 (08:58→20:24)
[2019-09-10] MEDS: CHOLECALCIFEROL 2,000 UNIT CAP PO SCH (08:58)
[2019-09-10] MEDS: predniSONE 10 MG TAB PO SCH (08:58)
[2019-09-10] MEDS: BENAZEPRIL 20 MG TAB PO SCH (09:00)
[2019-09-10] MEDS: ENOXAPARIN 30 MG/0.3 ML SYG SC SCH (09:01)
[2019-09-10] MEDS: CAPECITABINE 500 MG TAB PO SCH (09:01)
[2019-09-10] MEDS: DOXYCYCLINE 100 MG TAB PO SCH (20:24)
[2019-09-10] MEDS: morphine 2 MG INJ IV PRN ×2 (21:55→22:03)
[2019-09-11] VITALS: BP 104/67; PULSE 116; RESP 21
[2019-09-11] MEDS: HYDROCODONE/APAP (5/325) TAB PO PRN ×6 (01:45→23:04)
[2019-09-11 03:43] VITALS: BP 107/71; PULSE 98; RESP 22
[2019-09-11 07:32] VITALS: BP 103/65; PULSE 118; RESP 19
[2019-09-11] MEDS: ALBUTEROL HFA 8 GM INHALER INH SCH ×4 (08:19→21:00)
[2019-09-11] MEDS: DOXYCYCLINE 100 MG TAB PO SCH (08:20)
[2019-09-11] MEDS: FAMOTIDINE 20 MG TAB PO SCH ×2 (08:20→21:03)
[2019-09-11] MEDS: CAPECITABINE 500 MG TAB PO SCH (08:26)
[2019-09-11] MEDS: ENOXAPARIN 30 MG/0.3 ML SYG SC SCH (08:26)
[2019-09-11] MEDS: BENAZEPRIL 20 MG TAB PO SCH (08:27)
[2019-09-11] MEDS: CHOLECALCIFEROL 2,000 UNIT CAP PO SCH (08:27)
[2019-09-11] MEDS: predniSONE 10 MG TAB PO SCH (08:27)
[2019-09-11] MEDS: LEVALBUTEROL (NEB) 0.63 MG/3 ML AMP HHN SCH ×2 (08:46→16:20)
[2019-09-11] MEDS: BUDESONIDE (NEB) 0.5MG/2ML AMP HHN SCH ×2 (08:58→20:01)
[2019-09-11 12:11] VITALS: BP 139/71; PULSE 118; RESP 21
[2019-09-11 15:33] VITALS: BP 105/70; PULSE 121; RESP 22
[2019-09-11 20:04] VITALS: BP 108/57; PULSE 120; RESP 24
[2019-09-12] MEDS: LEVALBUTEROL (NEB) 0.63 MG/3 ML AMP HHN SCH ×4 (00:09→23:19)
[2019-09-12 00:21] VITALS: BP 107/57; PULSE 103; RESP 22
[2019-09-12] MEDS: ALBUTEROL HFA 8 GM INHALER INH SCH ×3 (02:39→21:14)
[2019-09-12] MEDS: HYDROCODONE/APAP (5/325) TAB PO PRN ×6 (02:46→23:31)
[2019-09-12 04:00] VITALS: BP 108/79; PULSE 116; RESP 19
[2019-09-12 07:28] VITALS: BP 112/63; PULSE 113; RESP 21
[2019-09-12] MEDS: BUDESONIDE (NEB) 0.5MG/2ML AMP HHN SCH ×2 (08:10→19:36)
[2019-09-12] MEDS: predniSONE 10 MG TAB PO SCH (08:28)
[2019-09-12] MEDS: FAMOTIDINE 20 MG TAB PO SCH ×2 (08:28→21:13)
[2019-09-12] MEDS: CHOLECALCIFEROL 2,000 UNIT CAP PO SCH (08:28)
[2019-09-12] MEDS: ENOXAPARIN 30 MG/0.3 ML SYG SC SCH (08:30)
[2019-09-12] MEDS: CAPECITABINE 500 MG TAB PO SCH (08:30)
[2019-09-12] MEDS: BENAZEPRIL 20 MG TAB PO SCH (08:31)
[2019-09-12 11:22] VITALS: BP 125/78; PULSE 113; RESP 20
[2019-09-12 16:19] VITALS: BP 105/69; PULSE 92; RESP 18
[2019-09-12 20:00] VITALS: BP 103/65; PULSE 97; RESP 18
[2019-09-13] VITALS (21 sets, daily range): BP systolic 87–177; BP diastolic 50–160; PULSE 79–114; RESP 15–33
[2019-09-13] MEDS: ALBUTEROL HFA 8 GM INHALER INH SCH ×2 (01:00→06:26)
[2019-09-13] MEDS: HYDROCODONE/APAP (5/325) TAB PO PRN ×5 (03:24→20:24)
[2019-09-13] MEDS: BUDESONIDE (NEB) 0.5MG/2ML AMP HHN SCH ×2 (07:30→21:02)
[2019-09-13] MEDS: LEVALBUTEROL (NEB) 0.63 MG/3 ML AMP HHN SCH ×2 (07:42→16:35)
[2019-09-13] MEDS: CHOLECALCIFEROL 2,000 UNIT CAP PO SCH (08:40)
[2019-09-13] MEDS: FAMOTIDINE 20 MG TAB PO SCH ×2 (08:40→20:24)
[2019-09-13] MEDS: BENAZEPRIL 20 MG TAB PO SCH (08:41)
[2019-09-13] MEDS: predniSONE 10 MG TAB PO SCH (08:41)
[2019-09-13] MEDS: ENOXAPARIN 30 MG/0.3 ML SYG SC SCH (08:44)
[2019-09-13] MEDS: CAPECITABINE 500 MG TAB PO SCH (08:44)
[2019-09-13] MEDS ORDERED: MAGNESIUM SULFATE 2 GM/50 ML 50 ML IVPB ONE (10:00)
[2019-09-13] MEDS ORDERED: FUROSEMIDE 40 MG INJ IV ONE (10:00)
[2019-09-13] MEDS ORDERED: LEVALBUTEROL (NEB) 0.63 MG/3 ML AMP HHN PRN (10:00)
[2019-09-13] MEDS ORDERED: DIGOXIN 500 MCG INJ IV ONE (12:00)
[2019-09-13] MEDS ORDERED: METOPROLOL 5 MG INJ IV PRN (12:00)
[2019-09-13] MEDS: ATENOLOL 25 MG TAB PO SCH ×2 (12:43→20:24)
[2019-09-13] MEDS ORDERED: FUROSEMIDE 20 MG INJ IV ONE (16:00)
[2019-09-14] VITALS (50 sets, daily range): BP systolic 85–121; BP diastolic 52–87; PULSE 81–189; RESP 13–47
[2019-09-14] MEDS: LEVALBUTEROL (NEB) 0.63 MG/3 ML AMP HHN SCH ×3 (00:15→16:26)
[2019-09-14] MEDS: HYDROCODONE/APAP (5/325) TAB PO PRN ×5 (01:15→22:40)
[2019-09-14] MEDS ORDERED: METOPROLOL 5 MG INJ ONE (07:45)
[2019-09-14] MEDS: BUDESONIDE (NEB) 0.5MG/2ML AMP HHN SCH ×2 (08:24→19:50)
[2019-09-14] MEDS: predniSONE 10 MG TAB PO SCH (08:48)
[2019-09-14] MEDS: FAMOTIDINE 20 MG TAB PO SCH ×2 (08:48→22:40)
[2019-09-14] MEDS: ATENOLOL 25 MG TAB PO SCH ×2 (08:48→21:00)
[2019-09-14] MEDS: FUROSEMIDE 20 MG INJ IV SCH (08:50)
[2019-09-14] MEDS: CHOLECALCIFEROL 2,000 UNIT CAP PO SCH (08:52)
[2019-09-14] MEDS: CAPECITABINE 500 MG TAB PO SCH (08:53)
[2019-09-14] MEDS ORDERED: DIGOXIN 500 MCG INJ IV ONE (09:30)
[2019-09-14] MEDS ORDERED: AMIODARONE 150MG/D5W BOLUS 100 ML IV ONE (09:30)
[2019-09-14] MEDS: AMIODARONE 900 MG in DEXTROSE 5% 482 ML IV SCH ×2 (09:39→15:40)
[2019-09-14] MEDS: ENOXAPARIN 60 MG/0.6 ML SYG SC SCH (21:00)
[2019-09-15] VITALS (80 sets, daily range): BP systolic 47–166; BP diastolic 23–138; PULSE 86–117; RESP 10–38
[2019-09-15] MEDS: LEVALBUTEROL (NEB) 0.63 MG/3 ML AMP HHN SCH ×3 (00:32→16:00)
[2019-09-15] MEDS: LORAZEPAM 2 MG INJ IV PRN ×2 (01:00→05:27)
[2019-09-15] MEDS: PHENYLephrine 40 MG in DEXTROSE 5% 246 ML IV SCH ×3 (01:04→06:40)
[2019-09-15] MEDS ORDERED: ROCURONIUM 50 MG INJ ONE (02:35)
[2019-09-15] MEDS ORDERED: ETOMIDATE 20 MG INJ ONE (02:35)
[2019-09-15] MEDS ORDERED: morphine 2 MG INJ IV PRN (03:15)
[2019-09-15] MEDS: NORepinephrine 8MG/250 ML (PMX 250 ML IV SCH ×4 (03:20→17:24)
[2019-09-15] MEDS: BUDESONIDE (NEB) 0.5MG/2ML AMP HHN SCH ×2 (07:55→20:00)
[2019-09-15] MEDS: PHENYLEPHRINE 80 MG in DEXTROSE 5% 250 ML IV SCH ×3 (08:48→17:32)
[2019-09-15] MEDS: ATENOLOL 25 MG TAB PO SCH (08:57)
[2019-09-15] MEDS: FUROSEMIDE 20 MG INJ IV SCH (09:00)
[2019-09-15] MEDS: ENOXAPARIN 60 MG/0.6 ML SYG SC SCH (09:00)
[2019-09-15] MEDS: CAPECITABINE 500 MG TAB PO SCH (09:17)
[2019-09-15] MEDS: predniSONE 10 MG TAB PO SCH (09:22)
[2019-09-15] MEDS: FAMOTIDINE 20 MG TAB PO SCH (09:22)
[2019-09-15] MEDS ORDERED: VASOPRESSIN 60 UNIT in DEXTROSE 5% 57 ML IV SCH (09:30)
[2019-09-15] MEDS ORDERED: FENTAnyl 1,000 MCG in SOD CHLORIDE 0.9% 80 ML IV SCH (10:00)
[2019-09-15] MEDS ORDERED: MIDAZOLAM 100 MG in SOD CHLORIDE 0.9% 80 ML IV SCH (10:00)
[2019-09-15] MEDS ORDERED: LACTATED RINGER'S 250 ML IV ONE (10:00)
[2019-09-15] MEDS ORDERED: ALBUMIN HUMAN 25% 50 ML IV ONE (10:30)
[2019-09-15] MEDS: CHOLECALCIFEROL 2,000 UNIT CAP PO SCH (11:10)
[2019-09-15] MEDS ORDERED: ENOXAPARIN 60 MG/0.6 ML SYG SC SCH (12:00)
[2019-09-15] MEDS ORDERED: DOPamine 1,600 MG in DEXTROSE 5% 210 ML IV STA (14:09)
== END 2019-09-15 19:57 | disposition expired | DRG 597 ==
LOC: TEL 16:40 → ICU 09-13 10:00
PROVIDERS: ADMIT Internal Medicine; ATTEND Internal Medicine
PROC: 0W993ZZ Drainage of Right Pleural Cavity, Percutaneous Approach (ICD-10-PCS; principal; 2019-09-07)
PROC: 5A09457 Assistance with Respiratory Ventilation, 24-96 Consecutive Hours, Continuous Positive Airway Pressure (ICD-10-PCS; 2019-09-13)
PROC: 3E033XZ Introduction of Vasopressor into Peripheral Vein, Percutaneous Approach (ICD-10-PCS; 2019-09-13)
PROC: 0BH17EZ Insertion of Endotracheal Airway into Trachea, Via Natural or Artificial Opening (ICD-10-PCS; 2019-09-15)
PROC: 5A1935Z Respiratory Ventilation, Less than 24 Consecutive Hours (ICD-10-PCS; 2019-09-15)
DX: C50.911 Malignant neoplasm of unspecified site of right female breast (principal); J18.9 Pneumonia, unspecified organism; J96.01 Acute respiratory failure with hypoxia; N17.0 Acute kidney failure with tubular necrosis; C78.00 Secondary malignant neoplasm of unspecified lung; C79.51 Secondary malignant neoplasm of bone; C78.6 Secondary malignant neoplasm of retroperitoneum and peritoneum; C56.9 Malignant neoplasm of unspecified ovary; N17.9 Acute kidney failure, unspecified; J91.0 Malignant pleural effusion; I50.30 Unspecified diastolic (congestive) heart failure; E66.9 Obesity, unspecified; Z68.32 Body mass index [BMI] 32.0-32.9, adult; Z90.11 Acquired absence of right breast and nipple; R53.1 Weakness; J45.909 Unspecified asthma, uncomplicated; I89.0 Lymphedema, not elsewhere classified; R60.9 Edema, unspecified; R00.0 Tachycardia, unspecified; I11.0 Hypertensive heart disease with heart failure; I95.9 Hypotension, unspecified; I48.91 Unspecified atrial fibrillation; Z79.01 Long term (current) use of anticoagulants; D63.0 Anemia in neoplastic disease; R39.2 Extrarenal uremia
CPT/HCPCS: 31500; 32555; 36600; 71045; 80048; 80053; 80076; 82803; 82945; 82962; 83036; 83615; 83735; 83880; 84100; 84145; 84157; 84443; 84484; 85025; 85378; 85610; 85730; 87070; 87081; 87102; 87116; 88104; 88305; 89051; 93005; 93306; 93970; 94002; 94640; 94660; 94664; 94770; 97163; J0282; J1265; J1650; J1940; J2060; J2250; J2270; J2370; J3010; J3475; J7060; J7070; J7120; J7512; P9047